=== PATIENT | male | born 1960 | race Caucasian/White ===

== ENCOUNTER 2023-02-19 07:55 | Emergency (ER) | payer BC, SELFPAY ==
[2023-02-19 07:56] VITALS: BP 195/110; PULSE 73; RESP 14; TEMP 36.1; O2SAT 98; BMI 29.4
[2023-02-19 08:05] VITALS: BMI 29.5
--- NOTE | 2023-02-19 08:12 | EDS_ITS ---
HPI History of Present Illness Chief Complaint: Neuro S/Sx Informant: patient and spouse/S.O. Narrative Narrative: Day before yesterday, patient noticed that his right face was droopy and as a result he is having some trouble talking, increased tearing from his right eye, and trouble closing his right eye. Couple days before that he had a routine physical for work that showed that his blood pressure was somewhere around 180, this morning it was 123 systolic, and here it is high again 195. He has no weakness, numbness or tingling in his extremities, or trouble talking. For about 2 weeks he has had an itchy lump in the right neck, and today he also notices an aching pain just below or behind the right ear. He denies any decreased hearing or anything that actually feels like an earache. No recent cold symptoms. Patient does not see a doctor, but is trying to get 1. He takes no medications since he has no medical problems that he knows of. This past week was the first time in a long time he has had his blood pressure checked. History is somewhat limited from the patient, the is a nurse and answers most questions for him. PFS PFS Medical History no medical history no medical history Home Medications prednisone 10 mg tablet 10 mg PO DAILY #40 TABLETS 02/19/23 [Rx Last Taken Unknown] Allergy/AdvReac Type Severity Reaction Status Date / Time No Known Allergies Allergy Verified 02/19/23 07:56 Family History no significant family his Surgical History no surgical history Social History Smoking Status: Never smoker ROS [facility] ED Constitutional Constitutional ED: Denies chills or fever(s) Eyes Eyes: Reports tearing; Denies blurry vision, change in vision or diplopia ENT ENT ED: Reports other Details: Weakness right face see HPI ; Denies rhinorrhea or sore throat Cardiovascular Cardiovascular: Denies chest pain or palpitations Respiratory/Chest Respiratory/Chest: Denies cough or dyspnea Gastrointestinal Gastrointestinal: Denies abdominal pain, diarrhea, nausea or vomiting Genitourinary Genitourinary ED: Denies dysuria or hematuria Musculoskeletal Musculoskeletal: Denies back pain or neck pain Integumentary Denies abscess or rash Neurologic Neurologic: Reports as per HPI, abnormal speech and other Details: Weakness right side of face only ; Denies abnormal gait, abnormal hearing, headache(s) or paresthesias Psychiatric Psychiatric: Denies anxiety or suicidal thoughts EXAM Physical Exam Const Vital Signs: 02/19/23 07:56 Temperature 97 F L Temperature Source Temporal Pulse Rate 73 Respiratory Rate 14 Blood Pressure 195/110 H Blood Pressure Mean 138 Pulse Ox 98 Oxygen Delivery Method Room Air Positive well nourished and well developed General Appearance ED: well developed and NAD HEENT Reports moist mucous membranes HEENT Narrative: Complete right facial droop including forehead which is paralyzed on the right side only, motor function normal throughout the left side. This includes a ptosis on the right but normal-appearing eye. Normal intraoral exam. Sticks his tongue out in the midline. In the right anterolateral neck there is erythema that blanches without any other rash and a skin deep subcentimeter nodule that is nontender I do not palpate any lymphadenopathy or any other masses. No mastoid tenderness or process. No parotid tenderness or swelling. TMs and EACs normal bilaterally. normocephalic and atraumatic Eyes PERRL and EOMs intact bilaterally Neck full ROM, no lymphadenopathy and supple Resp normal respiratory effort and clear to auscultation bilaterally Cardio regular rate, regular rhythm and no murmurs GI non-tender and non-distended Auscultation: normoactive bowel sounds Palpation: soft Back/Spine no CVA tenderness General Back: other FROM Extremity normal to inspection General Extremety ED: Negative for edema, pulses abnormal or tenderness General Extremity: Negative for edema or pulses abnormal Neuro oriented x3, CN's II-XII intact bilaterally and no sensory deficits noted Sensorium / Orientation: awake and alert Motor Exam: strength 5/5 throughout Skin no rashes or lesions noted and no wounds MDM MDM MDM Narrative Medical decision making narrative: Rechecked blood pressure 177/89. 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 Given that his blood pressure was 123 this morning, I am hesitant to start him on antihypertensives with the limited number of elevated pressures he has had in the last several days. He needs to get regular rechecks and states she is establishing him with Dr. Scherer. At this time prednisone is indicated, will start him on 60 mg today and do 60 mg total for 6 days followed by a 4-day taper per current recommendations. He has no contraindications of prednisone right now. We discussed eyepatch and artificial tears to prevent any problems or damage to his eye, he does wear eyeglasses which helps, but when he is outdoors I recommend patching, and drinking through a straw if he needs to, at this time I do not think he needs any other emergent testing, all questions answered at the bedside and they are comfortable with that plan. Discharge Plan Triage Chief Complaint: Neuro S/Sx ED Provider: Armando Fernandes Dx/Rx/DC Orders Clinical Impression: Right-sided Wong's palsy, Episode of hypertension Instructions: Hypertension Dc, ED Wong's Palsy Prescriptions: New prednisone 10 mg tablet 10 mg PO DAILY Qty: 40 0RF Rx Instructions: 6 po qd x 5 d, 4 po qd x 1 d, 3 po qd x 1 d, 2 po qd x 1 d, then 1 po qd x 1 d Primary Care Provider: Alyssia High Referrals: Zoila Scherer DO [Med Staff - [employer]] - Activity Restrictions/Additional Instructions: Wear eye patch whenever outdoors to protect eye and use artificial tears as needed throughout the day to prevent dry eye, which can cause increased irrita tion, pain, and corneal abrasions. Disposition Disposition: Home, Self Care
[2023-02-19] MEDS: predniSONE 20 MG Tablet 60 MG PO (08:17)
[2023-02-19 08:19] VITALS: BP 177/99
== END 2023-02-19 08:40 | disposition home or self-care (01) ==
PROVIDERS: Emergency Provider Emergency Medicine; PCP Internal Medicine; Visit Provider Emergency Medicine
DX: G51.0 Bell's palsy (principal); I10 Essential (primary) hypertension; Z97.3 Presence of spectacles and contact lenses
CPT/HCPCS: 99283

== ENCOUNTER → 2023-02-20 | Outpatient (CLI) | payer BC, SELFPAY ==
--- NOTE | 2023-02-20 14:47 | CT_ITS ---
INDICATION: Wong''s palsy EXAMINATION: CT BRAIN WITH AND WITHOUT CONTRAST - CT Head or Brain WO/W Contrast Injection TECHNIQUE: Multiple axial images were obtained of the brain with and without IV contrast. A radiation dose optimization technique was used for this scan. IV Contrast dosage and agent: RADIATION DOSAGE (If Supplied By Facility): CTDIvol = ( 44.99 ) mGy, DLP = ( 1580.97 ) mGycm COMPARISON: FINDINGS: BRAIN PARENCHYMA: No intra- or extra-axial hemorrhage. No evidence of acute infarct. No intracranial mass or mass effect. There is preservation of the henderson/white matter interface. Posterior fossa structures are unremarkable. No abnormal contrast enhancement. CSF SPACES: Appropriate for age. No hydrocephalus. Basal cisterns are patent. CALVARIUM, SKULL BASE, PARANASAL SINUSES AND MASTOID AIR CELLS: Clear. No discrete lytic or blastic abnormalities. ORBITS: Both globes, extraocular muscles, optic nerves and retrobulbar fat appear unremarkable. CT/Brain/Head W/WO Contrast IMPRESSION: Negative CT Brain with and without contrast. Electronically Signed: Derrick Zambrano DO at 16:20 EDT Reading Location ID and State: [facility] / [place] Tel [phone], Service support ,
[2023-02-20 15:38] LABS: EGFR FINGERSTICK > 60.0000 mL/min (>60)
[2023-02-20 15:41] LABS: ALB/GLOB Ratio 1.2 RATIO (0.9-2.4); AST(SGOT) 9 U/L (15-37); Alanine Aminotransfer ALT/SGPT 16 U/L (16-61); Albumin, Serum 3.8 g/dL (3.2-5.0); Alkaline Phosphatase 69 U/L (45-117); Anion Gap 7 (5-15); BUN 13 mg/dL (7-18); BUN/Creat Ratio 15.5 RATIO (10-20); CRP 3.88 mg/L (0.0-3.0); Chloride 109 mmol/L (98-107); Creatinine, Serum 0.84 mg/dL (0.70-1.30); EST Glomerular Filtration Rate 98 mL/min (>60); Est Glom Filt Rate - Afr Amer 119 mL/min (>60); Globulin 3.3 g/dL (2.2-4.2); Glucose 122 mg/dL (74-106); Potassium 3.8 mmol/L (3.5-5.1); Protein, Total 7.1 g/dL (6.4-8.2); Sodium Level 142 mmol/L (136-145)
[2023-02-20 15:44] LABS: Erythrocyte Sedimentation Rate 7 mm/hr (0-20)
[2023-02-20 15:47] LABS: Absolute Lymphocyte Count 0.51 X10^3/uL (0.83-4.51); Absolute Neutrophil Count 7.4 X10^3/uL (2.0-7.7); Basophil# 0.02 X10^3/uL; Basophil% 0.2 % (0-1); Hematocrit 42.5 % (40-54); Hemoglobin 14.2 g/dL (13.0-16.5); Lymphocyte # 0.51 X10^3/ul (0.83-4.51); Lymphocyte % 6.3 % (19-41); Mean Corp Hgb Conc 33.4 g/dL (32-36); Mean Corpuscular Volume 86.7 fL (80-94); Mean Platelet Vol. 12.8 fl (6.2-12.0); Monocyte% 1.2 % (0-10); NRBC Flagged by Analyzer 0 % (0-5); Neutrophil # 7.36 X10^3/uL (2.7-7.7); Neutrophil % 91.7 % (47-70); POSITIVE DIFFERENTIAL YES; Platelet Count 189 K/mm3 (150-450); RBC Distribution Width CV 13.2 % (11.6-14.6); RBC Distribution Width SD 41.1 fl (35.1-43.9)
[2023-02-20 15:51] LABS: Differential Indicated SCAN CRITERIA MET
[2023-02-20 16:06] LABS: Differential Comment SCANNED
== END | disposition home or self-care (01) ==
PROVIDERS: PCP Internal Medicine; Referring Provider Nurse Practitioner Family; Visit Provider Nurse Practitioner Family
DX: G51.0 Bell's palsy (principal)
CPT/HCPCS: 70470; 80053; 85025; 85652; 86140; Q9967

== ENCOUNTER → 2023-02-26 | Outpatient (CLI) | payer BC, SELFPAY ==
[2023-02-26 11:32] LABS: Bacteria 0 SEEN /hpf (None Seen); Mucous, Urine 0 SEEN /hpf (<or=2+); Red Blood Cells-Urine 0 SEEN /hpf (0-5); Squamous Epithelial Cells - UA 0 SEEN /hpf (0-5); White Blood Cells 0 SEEN /hpf (0-5)
[2023-02-26 15:17] LABS: Color, Urine Yellow (Yellow); Glucose, Dipstick Normal (Normal); Ketone-Dipstick Negative (Negative); Leukocyte Esterase-Dipstick Negative /ul (Negative); Nitrite-Dipstick Negative (Negative); Occult Blood-Urine Negative /ul (Negative); Protein-Dipstick 15 mg/dl (Negative); Specific Gravity, Urine 1.015 (1.002-1.030); Urine Bilirubin Dipstick Negative (Negative); Urine Clarity Clear (Clear); Urine Urobilinogen Normal (Normal); Urine pH 6.5 (5.0 - 8.0)
[2023-02-26 15:42] LABS: Hemoglobin A1c 5.4 % (3.8-5.6)
[2023-02-26 15:59] LABS: Cholesterol 192 mg/dL (200); High Density Lipoprotein 53 mg/dL; Thyroid Stim Hormone (TSH) 0.79 uIU/mL (0.358-3.74); Triglycerides 214 mg/dL; Very Low Density Lipoprotein 43 mg/dL (5-40)
[2023-03-02 01:07] LABS: Lyme IgG P18 Ab Absent (.); Lyme IgG P23 Ab Absent (.); Lyme IgG P28 Ab Absent (.); Lyme IgG P30 Ab Absent (.); Lyme IgG P39 Ab Absent (.); Lyme IgG P41 Ab Present (.); Lyme IgG P45 Ab Absent (.); Lyme IgG P58 Ab Present (.); Lyme IgG P66 Ab Absent (.); Lyme IgG P93 Ab Present (.); Lyme IgG WB Interpretation Negative (.); Lyme IgM P23 Ab Present (.); Lyme IgM P39 Ab Present (.); Lyme IgM P41 Ab Present (.); Lyme IgM WB Interpretation Positive (.)
== END | disposition home or self-care (01) ==
LOC: MTLAB 11:12
PROVIDERS: PCP Internal Medicine; Referring Provider Nurse Practitioner Family; Visit Provider Nurse Practitioner Family
DX: I16.0 Hypertensive urgency (principal); R73.01 Impaired fasting glucose; Z13.220 Encounter for screening for lipoid disorders; R76.8 Other specified abnormal immunological findings in serum
CPT/HCPCS: 36415; 80061; 81001; 83036; 84443; 86617

== ENCOUNTER → 2023-03-01 | Outpatient (CLI) | payer BC, SELFPAY ==
[2023-03-04 16:07] LABS: CHOLESTEROL TOTAL 186 mg/dL (100-199); HDL-C 54 mg/dL (>39); HDL-P TOTAL 30.2 umol/L (>=30.5); INSULIN RESISTANCE SCORE 47 (<=45); LDL SIZE 21.1 nm (>20.5); LDL-C (NIH CALC) 103 mg/dL (0-99); LDL-P 1322 nmol/L (<1000); SMALL LDL-P 358 nmol/L (<=527); TRIGLYCERIDES 167 mg/dL (0-149)
== END | disposition home or self-care (01) ==
PROVIDERS: PCP Internal Medicine; Referring Provider Nurse Practitioner Family; Visit Provider Nurse Practitioner Family
DX: E78.1 Pure hyperglyceridemia (principal)
CPT/HCPCS: 36415; 80061; 83704

== ENCOUNTER → 2023-04-04 | Outpatient (CLI) | payer BC, SELFPAY ==
--- NOTE | 2023-04-04 06:43 | MRI_ITS ---
EXAM: MR HEAD WITHOUT AND WITH INTRAVENOUS CONTRAST, INTERNAL AUDITORY CANAL PROTOCOL CLINICAL INDICATION: Bilateral facial paralysis-worsening, BELLS PALSY AFTER BEING BIT BY A TICK TECHNIQUE: Multiplanar and multisequence MR images of the internal auditory canal were obtained without and with intravenous contrast. Magnetic field strength 1.5 T. CONTRAST: 15 cc of Clariscan IV. COMPARISON: No relevant prior studies available. FINDINGS: CRANIAL NERVES: Unremarkable. No mass. No abnormal enhancement. COCHLEA AND SEMICIRCULAR CANALS: Unremarkable. CEREBELLOPONTINE ANGLES: Unremarkable. No mass. BRAIN AND EXTRA-AXIAL SPACES: Unremarkable as visualized. No intra- or extra-axial hemorrhage. No intracranial mass or mass effect. There is preservation of the henderson/white matter interface. Posterior fossa structures are unremarkable. Ventricles are appropriate for age. No hydrocephalus. Basal cisterns are patent. BONES/JOINTS: Old left frontal craniotomy. No discrete lytic or blastic abnormalities. SINUSES: Unremarkable as visualized. Clear. MASTOID AIR CELLS: Unremarkable as visualized. Clear. ORBITS: Unremarkable as visualized. Both globes, extraocular muscles, optic nerves and retrobulbar fat appear unremarkable. MRI/Brain W/WO Contrast IMPRESSION: No acute findings in the internal auditory canals. Electronically Signed: Maulik Lincoln MD at 7:19 EDT ,
[2023-04-04 07:06] LABS: CREATININE FINGERSTICK 1.4 mg/dL (0.70-1.30)
== END | disposition home or self-care (01) ==
LOC: MRI 06:27
PROVIDERS: PCP Internal Medicine; Referring Provider Nurse Practitioner Family; Visit Provider Nurse Practitioner Family
DX: G51.0 Bell's palsy (principal)
CPT/HCPCS: 70553; A9575

== ENCOUNTER 2023-10-04 08:23 | Day surgery (SDC) | payer BC, SELFPAY ==
[2023-10-04] VITALS (7 sets, daily range): BP systolic 100–158; BP diastolic 72–99; PULSE 53–71; RESP 16–18; TEMP 36.3–36.6; O2SAT 95–99; BMI 28.5
[2023-10-04] MEDS: Lactated Ringers 1,000 ML 15 ML IV (08:44)
--- OUTSIDE RECORDS SUMMARY | 2023-10-04 08:46 | XMS RPT_ITS | CCD ---
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 Name Role Phone Zoila Scherer DO Unavailable [phone] Alaina Lee LPN Unavailable Unavailable Sandra Strong CNP Unavailable Unavailable Unavailable Anthony Gauthier Unavailable Sandra Strong CNP Unavailable Masood Santos MD Unavailable [phone] Allergies Allergy Classification Reported Allergen(s) Allergy Type Date of Onset Reaction(s) Facility (12 sources) No known drug allergy (situation); Translations: [No known drug allergy (situation)] Allergy to substance (finding) [facility] Work Phone: Medications Completed/Discontinued Medications Medication Drug Class(es) Dates Sig (Normalized) Sig (Original) doxycycline hyclate 100 mg oral capsule (14 sources) Tetracycline-class Drug Start: 02-20-2023 End: 03-06-2023 take 1 capsule by mouth twice daily doxycycline hyclate 100 mg oral capsule 1 Capsule 2 times per day for 14 days Quantity: 28 {Capsule} Refills: 0 Ordered: 20-Feb-2023 Sandra Strong CNP Start : 20-Feb-2023 End : 06-Mar-2023 Inactive hydrALAZINE hydrochloride 25 mg oral tablet (14 sources) Arteriolar Vasodilator Start: 02-20-2023 End: 05-02-2023 take 1 tablet by mouth every eight hours as needed hydrALAZINE 25 mg oral tablet 1 (one) tablet every 8 hours as needed for systolic >170 or diastolic >100 for 0 days Quantity: 30 {Tablet} Refills: 0 Ordered: 30-Aug-2023 Rosa GIVENSAlaina Jiang Start : 20-Feb-2023 End : 02-May-2023 Inactive Comments: Medication taken as needed. Problems Active Problems Problem Classification Problem Date Documented Da te Episodic/Chronic Acute cerebrovascular disease (14 sources) Subdural hematoma; 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 Chronic Past or Other Problems Problem Classification Problem Date Documented Da te Episodic/Chronic Unclassified (19 sources) Results Test Name Value Interpretation Reference Range Facil ity Vital Signs Date Time Vital Sign Value Performing Clinician Facility 05-02-2023 13:14-0400 Body height 172.72 cm Alaina Lee LPN [facility] Work Phone: 05-02-2023 13:14-0400 Body mass index (BMI) [Ratio] 27.98 kg/m2 Alaina Lee LPN [facility] Work Phone: 05-02-2023 13:14-0400 Body surface area Derived from formula 1.97 m2 Alaina Lee LPN [facility] Work Phone: 05-02-2023 13:14-0400 Body temperature 98.3 [degF] Alaina Lee LPN [facility] Work Phone: Encounters Encounter Date Encounter Type Care Provider Facility Start: 05-02-2023 End: 05-02-2023 Office outpatient visit 10 minutes Sandra Strong CNP Work Phone: [facility] Start: 04-17-2023 End: 04-22-2023 Office outpatient visit 15 minutes Sandra Strong CNP Work Phone: [facility] Start: 04-17-2023 Review Sandra Strong CNP Work Phone: [facility] Start: 03-07-2023 End: 03-07-2023 Annotation/Addendum Zoila Scherer DO Work Phone: [facility] Start: 02-28-2023 End: 02-28-2023 Lab Order Zoila Scherer DO Work Phone: [facility] Start: 02-27-2023 Review Zoila Harley n DO Work Phone: [facility] Start: 02-21-2023 End: 02-21-2023 Patient encounter procedure Zoila Scherer DO Work Phone: [facility] Start: 02-21-2023 End: 02-21-2023 Patient encounter procedure Zoila Scherer DO Work Phone: [facility] Start: 02-20-2023 End: 02-20-2023 Office outpatient new 30 minutes Zoila Scherer DO Work Phone: [facility] Start: 02-20-2023 Review Zoila Harley n DO Work Phone: [facility] Procedures Date Procedure Procedure Detail Performing Clinician Start: 04-18-2023 End: 04-18-2023 Surgery Visit Report Procedure Note: See Note; NOTES: [facility] [address] [place] [address]. [address] [place] [address] OFFICE VISIT Date of Service: 04/18/23 MR#: [id number] Acct: [id number] Name: BEBETO ROMERO Rep #: [id number] : 1960 Provider: Dr. Nilo paredes MD Age/Sex: 62/M Location: [facility] Status: Signed Intake Vital Signs 04/03/23 07:01 04/18/23 14:17 Height 5 ft 8 in Weight: 175 lb 187 lb 5 oz BMI 26.6 BP 152/96 H 145/91 H Blood Pressure Location Rt brachial Rt brachial Position Sitting Sitting Respiration 16 17 Pulse 96 90 Pulse Source Monitor Monitor Temp 98.6 F 97.3 F L Temp Source Temporal Tympanic Pulse Oximetry (%) 96 Oxygen Delivery Method room air Intake Visit Reasons: I D L FOREARM INFECTION Chief Complaint: LT ARM REDNESS/SWELLING/ WOUND Allergies No Known Allergies Allergy (Verified 04/18/23 14:18) Medications amoxicillin 875 mg-potassium clavulanate 125 mg tablet 1 tab PO BID #20 tabs 04/03/23 [Rx Confirmed 04/18/23] PFSH Medical History (Updated 04/18/23 @ 14:[address] Nilo Ash MD) Cellulitis of left forearm Inguinal hernia bilateral, non-recurrent Puncture wound of left forearm Surgical History (Updated 04/18/23 @ 14:16 by Ximena Boggs) H/O craniotomy Social History Smoking Status: Never smoker HPI HPI HPI: Patient reports he fell 2 weeks ago and he was in a pond and caught his arm on some metal grating. He was seen at the urgent care center but the patient was already draining and he was started on antibiotics. He has been on antibiotics for 10 days. He is still having drainage from the left forearm with swelling and pain. ROS General General: No weight change, appetite, fatigue, colon cancer, breast cancer or weakness HEENT HEENT: No difficulty swallowing, eye injury, eye surgery, swollen glands or hoarseness Endo Endocrine: No thyroid disease, diabetes mellitus, thyroid cancer, Hair loss, heat intolerance or cold intolerance Skin Skin: No rash or changing moles Breast Breast: No left breast lump, right breast lump, nipple discharge, breast pain, abnormal mammogram, abnormal US or breast enlargement Musc Musculoskeletal: No back problems, arthritis, rheumatoid arthritis, gout or joint pain Cardio Cardiovascular: No murmur, pacemaker, heart disease, atrial fibrillation, high blood pressure, heart attack, heart stent, palpitations, shortness of breat with exertion or chest pain Psych Psychiatric: No depression, anxiety or hearing voices Resp Respiratory: No shortness of breath, No sleep apnea, No cough, No COPD, No asthma, No emphysema and No wheezing Gastro Gastrointestinal: No abdominal pain, No nausea or vomiting, No diarrhea, No constipation, No blood in stool, No acid reflux, No hemorrhoids, No ulcers, No gallbladder problem and No black,tarry stools Abel Hematologic: No blood thinners, No blood disorders, No bleeding, No anemia and No blood clots Neuro Neurologic: No system reviewed and no additional complaints, except as documented, No as per HPI, No abnormal gait, No abnormal hearing, No abnormal movements, No abnormal speech, No behavioral changes, No burning sensations, No confusion, No convulsions, No disequilibrium, No dizziness, No localized weakness, No frequent falls, No headache(s), No lack of coordination, No loss of vision, No memory loss, No numbness, No other visual disturbances, No radicular pain, No restless legs, No sensory deficit, No syncope, No tingling, No tremor(s), No weakness and No other Exam Const General: cooperative Orientation: alert and oriented x3 HENMT Head: normal to inspection Neck Neck: normal visual inspection and full ROM Chest Chest palpation inspection: normal inspection of the chest Resp Effort Inspection: normal respiratory effort Auscultation: clear to auscultation bilaterally Cardio Rate: regular rate Rhythm: regular rhythm GI Inspection: non-distended Palpation: soft and nontender Musc Other: Large left forearm abscess with cellulitis and fluctuance Skin General: no rashes or lesions noted Neuro General: patient alert and patient oriented x3 Extrem General: full ROM Psych Appearance: grossly normal Mental Status: mental status grossly normal Office Procedures I D Provider Documentation Provider Documentation: The left forearm was prepped and draped in usual sterile fashion. Just proximal to the area that was spontaneously draining an area of skin was injected with local anesthetic. A small incision was made with a scalpel and deepened to the abscess cavity. There is copious purulent drainage. This is already been cultured by the patient's PCP. The area was drained and then irrigated until the purulent material was removed. Next the cavity was packed with quarter inch iodoform gauze. Dressing was applied. Patient tolerated the procedure well. Alert Black Oxide Operator Alert Billing: Yes Incision and Drainage 44767 Complex/Multiple Procedure Time Out Time Out Informed consent given: Yes Consent signed: Yes Time out checklist: patient, procedure, site marked/identified, positioning of patient, supplies available, allergies confirmed and team agrees on procedure Time out staff in room: Yes Time out verified: Yes Time out date: 04/18/23 Time out time: 02:00 Assessment and Plan Assessment and Plan (1) Abscess of left forearm: Status: Acute Plan: Patient had a large abscess of the left forearm. I performed incision and drainage with packing. He was instructed to continue his antibiotics and change the packing daily or twice a day as needed. Follow-up as needed. Nilo Ash MD Pager: [facility] [address] [place] [address], [address] [place] [address] Office: Orders: Orders Incision and Drainage Today L02.414 - Cutaneous abscess of left upper limb Coding Level of Care Code Beny Ellis Diagnoses Abscess of left forearm L02.414 CPT Codes Incision and Drainage - I D: 27435 Complex/Multiple (54563) 04/18/23 1429 <Electronically signed by Nilo Ash MD> Date Nilo Ash MD Cosigner Signature: Date (if applicable) CC: AD OPERATIONS SPECIALIST-C Sandra Strong [facility] Work Phone: Start: 04-04-2023 End: 04-05-2023 Brain W/WO Contrast Procedure Note: See Note; NOTES: [facility] [address] [place] [address] Brain W/WO Contrast MR#: [id number] Acct: [id number] Name: BEBETO ROMERO Rep #: [id number] : 1960 M 62 From: Maulik Danielle PCP: Dr. Zoila Scherer, DO Status: REG CLI Study: Brain W/WO Contrast Date of Exam: 04/04/23 Exam# [id number] Ordering Dr: Sandra Strong AD OPERATIONS SPECIALIST- C EXAM: MR HEAD WITHOUT AND WITH INTRAVENOUS CONTRAST, INTERNAL AUDITORY CANAL PROTOCOL CLINICAL INDICATION: Bilateral facial paralysis-worsening, BELLS PALSY AFTER BEING BIT BY A TICK TECHNIQUE: Multiplanar and multisequence MR images of the internal auditory canal were obtained without and with intravenous contrast. Magnetic field strength 1.5 T. CONTRAST: 15 cc of Clariscan IV. COMPARISON: No relevant prior studies available. FINDINGS: CRANIAL NERVES: Unremarkable. No mass. No abnormal enhancement. COCHLEA AND SEMICIRCULAR CANALS: Unremarkable. CEREBELLOPONTINE ANGLES: Unremarkable. No mass. BRAIN AND EXTRA-AXIAL SPACES: Unremarkable as visualized. No intra- or extra-axial hemorrhage. No intracranial mass or mass effect. There is preservation of the henderson/white matter interface. Posterior fossa structures are unremarkable. Ventricles are appropriate for age. No hydrocephalus. Basal cisterns are patent. BONES/JOINTS: Old left frontal craniotomy. No discrete lytic or blastic abnormalities. SINUSES: Unremarkable as visualized. Clear. MASTOID AIR CELLS: Unremarkable as visualized. Clear. ORBITS: Unremarkable as visualized. Both globes, extraocular muscles, optic nerves and retrobulbar fat appear unremarkable. MRI/Brain W/WO Contrast IMPRESSION: No acute findings in the internal auditory canals. Electronically Signed: Maulik Lincoln MD at 7:19 EDT , CC: Sandra Strong AD OPERATIONS SPECIALIST; Dr. Zoila Scherer DO Dental Specialist: Signed Sandra Strong CNP Work Phone: Start: 04-03-2023 End: 04-03-2023 Urgent Care Visit Report Procedure Note: See Note; NOTES: [facility] [address], [address] [place] [address] OFFICE VISIT Date of Service: 04/03/23 MR#: [id number] Acct: [id number] Name: BEBETO ROMERO Rep #: [id number] : 1960 Provider: JENNIFER Murcia Age/Sex: 62/M Location: [facility] Status: Signed Intake Vital Signs 02/19/23 08:05 04/03/23 07:01 04/03/23 07:02 Height 5 ft 6.93 in 5 ft 8 in Weight: 175 lb BMI 26.6 BP 152/96 H 144/84 H Blood Pressure Location Rt brachial Lt brachial Position Sitting Sitting Respiration 16 Pulse 96 Pulse Source Monitor Temp 98.6 F Temp Source Temporal Pulse Oximetry (%) 96 Oxygen Delivery Method room air Intake Visit Reasons: LEFT ARM REDNESS/SWELLING/WOUND INFECTION CONCERN Chief Complaint: LT ARM REDNESS/SWELLING/ WOUND Email Developer Required: No Accompanied by: Self Allergies No Known Allergies Allergy (Verified 04/03/23 06:53) Medications amoxicillin 875 mg-potassium clavulanate 125 mg tablet 1 tab PO BID #20 tabs 04/03/23 [Rx Confirmed 04/03/23] [facility] Medical History (Updated 04/03/23 @ 07:25 by Oren RODRIGUEZ, PA) Cellulitis of left forearm Puncture wound of left forearm Social History Smoking Status: Never smoker HPI HPI Chief Complaint: LT ARM REDNESS/SWELLING/ WOUND Details: BEBETO ROMERO, is a 62 M who presents to the office today for initial evaluation approximately 36 hours status post trip fall forward onto metal object which punctured his left forearm. Since the time of the injury, patient has developed progressively enlarging erythema, warmth, swelling circumferential to the same. Unknown last Td. Tmax 101.6 Fahrenheit last evening; no complaints of lightheadedness/dizziness, nausea, or chest pressure/shortness of breath.. Khsx-yse-wruuroy ibuprofen and Tylenol has assist with current symptoms. No other associated symptoms and no alleviating/aggravating factors. ROS Const Constitutional: No other (As above) Exam Const General: cooperative, healthy appearing and no acute distress Nutritional Appearance: average body habitus Orientation: alert, awake and oriented x3 HENLA Head: normal to inspection Ears: hearing grossly normal bilaterally and external ears normal Nose: external nose normal Chest Chest palpation inspection: normal inspection of the chest Resp Effort Inspection: normal respiratory effort and able to speak in complete sentences Cardio Rate: regular rate Pulses: radial pulses present Skin General: no rashes or lesions noted Trauma: puncture (L FA w/ 12 cm circumferential erythema, warmth, swelling, tender to touch) Neuro General: patient alert, patient awake and patient oriented x3 Cognition: normal cognition Speech: speech normal Motor: muscle tone normal throughout Sensory Exam: no sensory deficits noted Extrem General: normal to inspection Psych Appearance: grossly normal Mental Status: mental status grossly normal Mood: congruent mood Affect: normal affect Speech and Movement: speech and movement normal Attitude: cooperative Coding Level of Care Code Off vis,new,level 3 Diagnoses Puncture wound of left forearm S51.832A Cellulitis of left forearm L03.114 Assessment and Plan Assessment and Plan (1) Puncture wound of left forearm: Status: Acute (2) Cellulitis of left forearm: Status: Acute Plan: Augmentin as prescribed today. Supportive measures as instructed today. Tdap updated today. Follow-up with PCP in 3 to 5 days should symptoms not improve, ED sooner should symptoms only worsen or any other concerns develop. Patient states acknowledging understanding all the above. This note was generated with [employer] dictation software. It may contain incorrect words, spelling, and punctuation that were not noted in checking the note before signing. Medications: New amoxicillin-pot clavulanate 875-125 mg 1 TAB PO BID 20 tabs 0RF 04/03/23 0726 <Electronically signed by Oren RODRIGUEZ> Date Oren RODRIGUEZ Cosigner Signature: Date (if applicable) CC: Sandra Strong CNP Work Phone: Start: 02-20-2023 End: 02-20-2023 Brain/Head W/WO Contrast Procedure Note: See Note; NOTES: [facility] [address] [place] [address] Brain/Head W/WO Contrast MR#: [id number] Acct: [id number] Name: BEBETO ROMERO Rep #: [id number] : 1960 M 62 From: Derrick Zambrano DO PCP: Dr. Zoila Scherer DO Status: REG CLI Study: Brain/Head W/WO Contrast Date of Exam: 3 Exam# [id number] Ordering Dr: Sandra Strong AD OPERATIONS SPECIALIST- C INDICATION: Wong''s palsy EXAMINATION: CT BRAIN WITH AND WITHOUT CONTRAST - CT Head or Brain WO/W Contrast Injection TECHNIQUE: Multiple axial images were obtained of the brain with and without IV contrast. A radiation dose optimization technique was used for this scan. IV Contrast dosage and agent: RADIATION DOSAGE (If Supplied By Facility): CTDIvol = ( 44.99 ) mGy, DLP = ( 1580.97 ) mGycm COMPARISON: FINDINGS: BRAIN PARENCHYMA: No intra- or extra-axial hemorrhage. No evidence of acute infarct. No intracranial mass or mass effect. There is preservation of the henderson/white matter interface. Posterior fossa structures are unremarkable. No abnormal contrast enhancement. CSF SPACES: Appropriate for age. No hydrocephalus. Basal cisterns are patent. CALVARIUM, SKULL BASE, PARANASAL SINUSES AND MASTOID AIR CELLS: Clear. No discrete lytic or blastic abnormalities. ORBITS: Both globes, extraocular muscles, optic nerves and retrobulbar fat appear unremarkable. CT/Brain/Head W/WO Contrast IMPRESSION: Negative CT Brain with and without contrast. Electronically Signed: Derrick Zambrano DO at 16:20 EDT Reading Location ID and State: [facility] / [place] Tel [phone], Service support , CC: Sandra Strong AD OPERATIONS SPECIALIST; Dr. Zoila Scherer DO Dental Specialist: Signed Sandra Strong CNP Work Phone: Start: 02-19-2023 End: 02-19-2023 Emergency Department Summary Procedure Note: See Note; NOTES: [facility] Records Department [address] [place] [address] Emergency Department Summary 02/19/23 MR#: [id number] Acct: [id number] Name: BEBETO ROMERO Rep #: [id number] : 1960 62 From: Armando Fernandes MD PCP: Dr. Alyssia High MD Status:PRE ER Location: ED HPI History of Present Illness Chief Complaint: Neuro S/Sx Informant: patient and spouse/S.O. Narrative Narrative: Day before yesterday, patient noticed that his right face was droopy and as a result he is having some trouble talking, increased tearing from his right eye, and trouble closing his right eye. Couple days before that he had a routine physical for work that showed that his blood pressure was somewhere around 180, this morning it was 123 systolic, and here it is high again 195. He has no weakness, numbness or tingling in his extremities, or trouble talking. For about 2 weeks he has had an itchy lump in the right neck, and today he also notices an aching pain just below or behind the right ear. He denies any decreased hearing or anything that actually feels like an earache. No recent cold symptoms. Patient does not see a doctor, but is trying to get 1. He takes no medications since he has no medical problems that he knows of. This past week was the first time in a long time he has had his blood pressure checked. History is somewhat limited from the patient, the is a nurse and answers most questions for him. PFSH PFSH Medical History no medical history no medical history Home Medications prednisone 10 mg tablet 10 mg PO DAILY #40 TABLETS 02/19/23 [Rx Last Taken Unknown] Allergy/AdvReac Type Severity Reaction Status Date / Time No Known Allergies Allergy Verified 02/19/23 07:56 Family History no significant family his Surgical History no surgical history Social History Smoking Status: Never smoker ROS ROS ED Constitutional Constitutional ED: Denies chills or fever(s) Eyes Eyes: Reports tearing; Denies blurry vision, change in vision or diplopia ENT ENT ED: Reports other Details: Weakness right face see HPI ; Denies rhinorrhea or sore throat Cardiovascular Cardiovascular: Denies chest pain or palpitations Respiratory/Chest Respiratory/Chest: Denies cough or dyspnea Gastrointestinal Gastrointestinal: Denies abdominal pain, diarrhea, nausea or vomiting Genitourinary Genitourinary ED: Denies dysuria or hematuria Musculoskeletal Musculoskeletal: Denies back pain or neck pain Integumentary Denies abscess or rash Neurologic Neurologic: Reports as per HPI, abnormal speech and other Details: Weakness right side of face only ; Denies abnormal gait, abnormal hearing, headache(s) or paresthesias Psychiatric Psychiatric: Denies anxiety or suicidal thoughts EXAM Physical Exam Const Vital Signs: 02/19/23 07:56 Temperature 97 F L Temperature Source Temporal Pulse Rate 73 Respiratory Rate 14 Blood Pressure 195/110 H Blood Pressure Mean 138 Pulse Ox 98 Oxygen Delivery Method Room Air Positive well nourished and well developed General Appearance ED: well developed and NAD HEENT Reports moist mucous membranes HEENT Narrative: Complete right facial droop including forehead which is paralyzed on the right side only, motor function normal throughout the left side. This includes a ptosis on the right but normal-appearing eye. Normal intraoral exam. Sticks his tongue out in the midline. In the right anterolateral neck there is erythema that blanches without any other rash and a skin deep subcentimeter nodule that is nontender I do not palpate any lymphadenopathy or any other masses. No mastoid tenderness or process. No parotid tenderness or swelling. TMs and EACs normal bilaterally. normocephalic and atraumatic Eyes PERRL and EOMs intact bilaterally Neck full ROM, no lymphadenopathy and supple Resp normal respiratory effort and clear to auscultation bilaterally Cardio regular rate, regular rhythm and no murmurs GI non-tender and non-distended Auscultation: normoactive bowel sounds Palpation: soft Back/Spine no CVA tenderness General Back: other FROM Extremity normal to inspection General Extremety ED: Negative for edema, pulses abnormal or tenderness General Extremity: Negative for edema or pulses abnormal Neuro oriented x3, CN's II-XII intact bilaterally and no sensory deficits noted Sensorium / Orientation: awake and alert Motor Exam: strength 5/5 throughout Skin no rashes or lesions noted and no wounds MDM MDM MDM Narrative Medical decision making narrative: Rechecked blood pressure 177/89. 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 Given that his blood pressure was 123 this morning, I am hesitant to start him on antihypertensives with the limited number of elevated pressures he has had in the last several days. He needs to get regular rechecks and states she is establishing him with Dr. Scherer. At this time prednisone is indicated, will start him on 60 mg today and do 60 mg total for 6 days followed by a 4-day taper per current recommendations. He has no contraindications of prednisone right now. We discussed eyepatch and artificial tears to prevent any problems or damage to his eye, he does wear eyeglasses which helps, but when he is outdoors I recommend patching, and drinking through a straw if he needs to, at this time I do not think he needs any other emergent testing, all questions answered at the bedside and they are comfortable with that plan. Discharge Plan Triage Chief Complaint: Neuro S/Sx ED Provider: Armando Fernandes Dx/Rx/DC Orders Clinical Impression: Right-sided Wong's palsy, Episode of hypertension Instructions: Hypertension Dc, ED Wong's Palsy Prescriptions: New prednisone 10 mg tablet 10 mg PO DAILY Qty: 40 0RF Rx Instructions: 6 po qd x 5 d, 4 po qd x 1 d, 3 po qd x 1 d, 2 po qd x 1 d, then 1 po qd x 1 d Primary Care Provider: Alyssia High Referrals: Zoila Scherer DO [[facility] Staff - Corporate Account Executive] - Activity Restrictions/Additional Instructions: Wear eye patch whenever outdoors to protect eye and use artificial tears as needed throughout the day to prevent dry eye, which can cause increased irritation, pain, and corneal abrasions. Disposition Disposition: Home, Self Care What to do if you have Problems For any increased pain, shortness of breath, bleeding, nausea or vomiting, chest pain, or any unexpected problems, contact your Primary Care Provider. Call [facility] ([phone]) or report to the closest Emergency Room. Call 911 if necessary. 02/19/23 0825 <Electronically signed by Armando Fernandes MD> Cosigner Signature (if applicable): CC: Dr. Alyssia High MD; Dr. Zoila Scherer DO Signed Zoila Scherer DO Work Phone: Plan of Treatment Date Care Activity Detail Author Start: 05-02-2023 Procedure Education Eprescribed prescriptions (G8553) [facility] Work Phone: Start: 04-17-2023 Culture bacterial any source anaerobic iso&id CULTURE ANAEROBIC (57385) [facility]; [facility] Work Phone: Start: 04-17-2023 CULTURE, WOUND (AEROBIC) (44389) CULTURE, WOUND (AEROBIC) (02068) [facility]; [facility] Work Phone: Start: 04-17-2023 Procedure Education Eprescribed prescriptions (G8553) [facility]; [facility] Work Phone: Start: 04-17-2023 Provider Instructions for Treatment Follow up in 2 weeks [facility] Work Phone: Start: 03-07-2023 Lipid panel LIPID PANEL (35014) : Do around 06/2023 [facility]; [facility] Work Phone: Start: 02-28-2023 Apolipoprotein each APOLIPOPROTEIN (17922) [facility] Work Phone: Start: 02-28-2023 Lipoprotein blood jaclyn numbers & subclasses NMR Profile (52964) [facility]; [facility] Work Phone: Start: 02-21-2023 Assay of thyroid stimulating hormone tsh TSH (THYROID STIMULATING HORMONE) (34946) [facility]; [facility] Work Phone: Start: 02-21-2023 Hemoglobin glycosylated a1c HGB A1C (83096) [facility]; [facility] Work Phone: Start: 02-21-2023 Lipid panel LIPID PANEL (31977) [facility] Work Phone: Start: 02-21-2023 Protein westrn blot i&r blood/other fluid PROTEIN-WESTERN BLOT (26685) [facility]; [facility] Work Phone: Start: 02-21-2023 Provider Instructions for Treatment Follow up in one week with Sandra [facility]; [facility] Work Phone: Start: 02-21-2023 Urinls dip stick/tablet reagnt non-auto micrscpy URINALYSIS W MICROSCOPY (20188) [facility]; [facility] Work Phone: Start: 02-20-2023 Blood count complete auto&auto difrntl wbc CBC, PLATELETS & AUT DIFF (28197) [facility]; [facility] Work Phone: Start: 02-20-2023 C-reactive protein C-REACTIVE PROTEIN (92850) [facility]; [facility] Work Phone: Start: 02-20-2023 Comprehensive metabolic panel METABOLIC PANEL, COMPREHENSIVE (21253) [facility]; [facility] Work Phone: Start: 02-20-2023 Procedure Education Eprescribed prescriptions (G8553) [facility]; [facility] Work Phone: Start: 02-20-2023 Provider Instructions for Treatment Follow up [facility]; [facility] Work Phone: Start: 02-20-2023 Sedimentation rate rbc automated Sedimentation Rate-ESR (53170) [facility]; [facility] Work Phone: Start: 02-20-2023 Antibody borrelia burgdorferi lyme disease Lyme Disease Antibody W/ Reflex (91739) [facility]; [facility] Work Phone: [facility] Work Phone: [facility] Work Phone: [facility] Work Phone: Payers Date Payer Category Payer Policy ID Unknown [employer] Instructions 05-02-2023 Note Date & Type Note Facility [facility]; [facility] Work Phone: Instructions Note Date & Type Note Facility [facility]; [facility] Work Phone: Instructions Note Date & Type Note Facility [facility]; [facility] Work Phone: Instructions Note Date & Type Note Facility [facility]; [facility] Work Phone: Instructions Note Date & Type Note Facility [facility]; [facility] Work Phone: Instructions Note Date & Type Note Facility [facility]; [facility] Work Phone: Instructions Note Date & Type Note Facility [facility]; [facility] Work Phone: Instructions Note Date & Type Note Facility [facility]; [facility] Work Phone: Instructions Note Date & Type Note Facility [facility]; [facility] Work Phone: Instructions Note Date & Type Note Facility [facility]; [facility] Work Phone: Additional Source Comments FOR RECORDS PERTAINING TO PATIENTS WHO ARE OR HAVE BEEN ENROLLED IN A CHEMICAL DEPENDENCY/SUBSTANCEABUSE PROGRAM, SOME INFORMATION MAY BE OMITTED. This clinical summary was aggregated from multiple sources. Caution should be exercised in using it in the provision of clinical care. This summary normalizes information from multiple sources, and as a consequence, information in this document may materially change the coding, format and clinical context of patient data. In addition, data may be omitted in some cases. CLINICAL DECISIONS SHOULD BE BASED ON THE PRIMARY CLINICAL RECORDS. [employer] [facility]. provides no warranty or guarantee of the accuracy or completeness of information in this document.
--- NOTE | 2023-10-04 09:08 | PCM.HP.STD ---
[facility] - General General Date of Admission: 10/04/23 Date of Service: 10/04/23 Chief Complaint: Screening colonoscopy HPI Narrative BEBETO ROMERO, is a 63 M who presents today for screening colonoscopy. He has never had a colonoscopy. He is not having any abdominal pain. Is not myographic. He denied any chest pain or shortness of breath. He denies any nausea, vomiting or diarrhea. He has no change in bowel bladder habits. Overall is in very good health. [facility] Medical History (Updated 10/02/23 @ 13:21 by Lizabeth Zimmerman) Cellulitis of left forearm Hx of Wong's palsy Inguinal hernia bilateral, non-recurrent Non-smoker Puncture wound of left forearm Wears glasses Home Medications NK 10/02/23 [History Last Taken Unknown] Allergy/AdvReac Type Severity Reaction Status Date / Time No Known Allergies Allergy Verified 10/04/23 08:40 Family History (Updated 09/20/23 @ 12:24 by Haley Butler) Father Liver cancer Surgical History H/O craniotomy Hx of bilateral inguinal hernia repair Social History (Updated 09/20/23 @ 12:25 by Haley Butler) current occupational status: employed Smoking Status: Never smoker Smokeless tobacco user: chewing tobacco ROS Review of Systems ROS Unobtainable: other Constitutional Constitutional: Denies fatigue, fever(s), poor appetite, weight gain or weight loss ENT HEENT: Denies mouth lesions Cardiovascular Cardiovascular: Denies abdominal bloating, abdominal edema or abdominal pain Respiratory/Chest Respiratory/Chest: Denies change in mental status, change in phlegm color, chest congestion or chest tightness Gastrointestinal Gastrointestinal: Denies belching, bloating, change in bowel habits, change in stool character, chewing difficulty, coffee ground emesis, constipation, cramping, diarrhea, dyspepsia, dysphagia, early satiety, excessive flatus, fecal incontinence, heartburn, hematemesis, hematochezia, hemorrhoids, loose stools, melena, nausea, odynophagia, rectal bleeding, tenesmus, vomiting or weight changes Genitourinary Genitourinary: Denies abdominal discomfort, burning urination or itching Musculoskeletal Musculoskeletal: Reports as per HPI; Denies muscle weakness or myalgias Integumentary Integumentary: Denies jaundice Neurologic Neurologic: Denies lack of coordination or weakness Psychiatric Psychiatric: Denies confusion, depression, memory loss, mood swings, paranoia or suicidal ideation Endocrine Endocrinology: Denies systems reviewed and no addt'l complaints, except as documented Hematologic/Lymphatic Hematologic/Lymphatic: Denies anemia, easy bleeding, easy bruising or lymphadenopathy Allergic/Immunologic Allergic/Immunologic: Denies systems reviewed and no addt'l complaints, except as documented Vital Signs Vital Signs Vital Signs: 10/04/23 08:45 10/04/23 08:45 Temperature 97.9 F Temperature Source Temporal Pulse Rate 71 Respiratory Rate 17 Respiratory Pattern Normal Blood Pressure 158/99 H Blood Pressure Mean 118 Blood Pressure Source Monitor Blood Pressure Position Semi-Fowlers Blood Pressure Location Right Arm Pulse Ox 99 Oxygen Delivery Method Room Air Weight Weight: 182 lb 5.156 oz Body Mass Index (BMI) 28.5 Physical Exam Const alert General Appearance: cooperative Orientation / Consciousness: oriented to person HEENT hearing grossly normal bilaterally Head and Scalp: normal to inspection Face and Sinus: face symmetric Nose: external nose normal Mouth: oral and palatal mucosa normal Eyes conjunctivae normal General Eye: normal appearance of both eyes Neck full ROM General: normal visual inspection Lymph Lymphatic: no lymphadenopathy noted Chest inspection of chest normal and palpation of chest normal Chest: symmetrical chest wall rise Resp normal respiratory effort Effort and Inspection: able to speak in complete sentences Cardio regular rate GI non-distended Percussion: normal to percussion Rectal Exam: deferred Neuro Speech: speech normal Gait (Neuro): normal gait Assessment & Plan Assessment/Plan (1) Encounter for screening for malignant neoplasm of colon: PLAN: Use explained alternatives, risk, benefits including outstanding bleeding, infection, sepsis, perforation, need for emergent surgery and . He will have an ASA of 2.
--- NOTE | 2023-10-04 09:30 | COLBX_PTH ---
PATHOLOGY RESULTS PATIENT: BEBETO ROMERO LOC: EN U#:[id number] AGE/SX: 63/M ROOM: RE10/04/[address]: Dr. Felix Lamb DO : 1960 BED: DIS: 10/04/2023 SPEC #: [id number] RECD: 10/04/23 10:53 STATUS: IFEANYI REHannah #: [id number] PAULINE: 10/04/23 09:[address]: Felix Lamb DEPT: SURGICAL PATHOLOGY RECD BY: Rebeca Saul ENTERED: 10/04/23 11:31 SP TYPE: COLON BX OTHR DR: Sandra Strong, [employer] Tissues: COLON BIOPSY Procedures: Surgery Specimen Level IV HEADER OPERATION: Colonoscopy, polypectomy PRE-OP DIAGNOSIS: Screening of malignant neoplasm of colon TISSUE SUBMITTED: Splenic flexure polyp MICROSCOPIC DIAGNOSIS Splenic flexure polyp, polypectomy: Suggestive of hyperplastic polyp with cautery artifacts. SJ:lilly 10/05/2023 MICROSCOPIC DESCRIPTION Slides are reviewed. GROSS DESCRIPTION Received in fixative is one container labeled with the patient's name and designated splenic flexure polyp. The specimen consists of one irregular fragment of light montes soft tissue that measures 0.3 x 0.3 x 0.1 cm. The specimen is totally submitted in one cassette. / REY:lilly 10/04/2023 TC:5 CPT: 69621
--- NOTE | 2023-10-04 10:06 | OP.CCLET_ITS ---
10/04/2023 Luigi Haider Re : Colonoscopy procedure for Josef Fitzgerald Dear Tae This procedure was performed on October. My impressions and recommendations are as follows: Impressions : - One 7 mm polyp at the splenic flexure, removed with a hot snare. Resected and retrieved. Recommendations : - Repeat colonoscopy in 5 years for surveillance. - Continue present medications. My findings are described in the full procedure note, which is enclosed. If I can be of further assistance, please feel free to contact me at . Sincerely, Felix Lamb, DO 10/04/2023 10:05:32 AM This report has been signed electronically.
--- NOTE | 2023-10-04 10:06 | OP.COLON_ITS ---
Patient Name: Josef Fitzgerald Procedure Date: 10/04/2023 9:35 AM Date of : 1960 Age: 63 Procedure: Colonoscopy Indications: Screening for colorectal malignant neoplasm Providers: Felix Lamb DO Referring MD: Luigi Haider Medicines: Monitored Anesthesia Care Patient Profile: This is a 63 year old male. Refer to note in patient chart for documentation of history and physical. Last Colonoscopy: more than 10 years ago. Complications: No immediate complications. Procedure: Pre-Anesthesia Assessment: - Prior to the procedure, a History and Physical was performed, and patient medications and allergies were reviewed. The patient is competent. The risks and benefits of the procedure and the sedation options and risks were discussed with the patient. All questions were answered and informed consent was obtained. Patient identification and proposed procedure were verified by the physician in the pre-procedure area. Mental Status Examination: alert and oriented. Airway Examination: normal oropharyngeal airway and neck mobility. Respiratory Examination: clear to auscultation. CV Examination: normal. ASA Grade Assessment: II - A patient with mild systemic disease. After reviewing the risks and benefits, the patient was deemed in satisfactory condition to undergo the procedure. The anesthesia plan was to use monitored anesthesia care (MAC). Immediately prior to administration of medications, the patient was re-assessed for adequacy to receive sedatives. The heart rate, respiratory rate, oxygen saturations, blood pressure, adequacy of pulmonary ventilation, and response to care were monitored throughout the procedure. The physical status of the patient was re-assessed after the procedure. After I obtained informed consent, the scope was passed under direct vision. Throughout the procedure, the patient's blood pressure, pulse, and oxygen saturations were monitored continuously. The pediatric colonoscope was introduced through the anus and advanced to the cecum, identified by appendiceal orifice and ileocecal valve. The colonoscopy was performed without difficulty. The patient tolerated the procedure well. The quality of the bowel preparation was adequate. The ileocecal valve, appendiceal orifice, and rectum were photographed. Scope In: 9:40:06 AM Scope Withdrawal Time 0 hours 14 minutes 45 seconds Scope Out: 9:58:57 AM Total Procedure Duration Time 0 hours 18 minutes 51 seconds Findings: The perianal and digital rectal examinations were normal. A 7 mm polyp was found in the splenic flexure. The polyp was sessile. The polyp was removed with a hot snare. Resection and retrieval were complete. Verification of patient identification for the specimen was done. Estimated blood loss was minimal. Impression: - One 7 mm polyp at the splenic flexure, removed with a hot snare. Resected and retrieved. Recommendation: - Repeat colonoscopy in 5 years for surveillance. - Continue present medications. Procedure Code(s): --- Professional --- 26131, Colonoscopy, flexible; with removal of tumor(s), polyp(s), or other lesion(s) by snare technique CPT copyright 2021 [employer]. All rights reserved. The codes documented in this report are preliminary and upon bookkeeping clerks supervisor review may be revised to meet current compliance requirements. Felix Lamb DO 10/04/2023 10:05:32 AM This report has been signed electronically. Number of Addenda: 0 Note Initiated On: 10/04/2023 9:35 AM
== END 2023-10-04 10:45 | disposition home or self-care (01) ==
LOC: EN 08:23 → AC 08:24
PROVIDERS: PCP Nurse Practitioner Family; Referring Provider Nurse Practitioner Family; Visit Provider Internal Medicine Gastroenterology
PROC: 0DJD8ZZ Inspection of Lower Intestinal Tract, Via Natural or Artificial Opening Endoscopic (ICD-10-PCS; CPT 45378; principal; 2023-10-04 09:25)
DX: Z12.11 Encounter for screening for malignant neoplasm of colon (principal); K63.5 Polyp of colon; Z80.0 Family history of malignant neoplasm of digestive organs; F17.220 Nicotine dependence, chewing tobacco, uncomplicated; Z87.19 Personal history of other diseases of the digestive system
CPT/HCPCS: 45385; 88305; J7120; J2405

== ENCOUNTER → 2023-10-11 | Outpatient (CLI) | payer BC, SELFPAY ==
--- OUTSIDE RECORDS SUMMARY | 2023-10-11 07:04 | XMS RPT_ITS | CCD ---
Author Name Unknown Address [address] [place] [address] Organization [facility] Care Team Providers Care Sewing Machine Repairer Name Role Phone Zoila Scherer DO Unavailable Alaina Lee LPN Unavailable Unavailable Sandra Strong CNP Unavailable Unavailable Unavailable Anthony Gauthier Unavailable Sandra Strong CNP Unavailable Masood Santos MD Unavailable Allergies Allergy Classification Reported Allergen(s) Allergy Type [...] Visit Report Procedure Note: See Note; NOTES: [facility] [address] [place] [address]. [address] [place] [address] OFFICE VISIT Date of Service: 04/18/23 MR#: [id number] Acct: [id number] Name: BEBETO ROMERO Rep #: [id number] : 1960 Provider: Dr. Nilo paredes MD Age/Sex: 62/M Location: [facility] Status: Signed Intake Vital Signs 04/03/23 07:01 [...] applied. Patient tolerated the procedure well. Alert Staffing Coordinator Alert Billing: Yes Incision and Drainage 79799 Complex/Multiple Procedure Time Out Time Out Informed [...] Follow-up as needed. Nilo Ash MD Pager: [facility] [address] [place] [address], [address] [place] [address] Office: Orders: Orders Incision and Drainage Today L02.414 - Cutaneous abscess of left upper limb Coding Level of Care Code Beny Ellis Diagnoses Abscess of left forearm L02.414 CPT Codes Incision and Drainage - I D: 73245 Complex/Multiple (83949) 04/18/23 1429 <Electronically signed by Nilo Ash MD> Date Nilo Ash MD Cosigner Signature: Date (if applicable) CC: CORE MAKER HELPER-C Sandra Strong [facility] Work Phone: Start: 04-04-2023 End: 04-05-2023 Brain W/WO Contrast Procedure Note: See Note; NOTES: [facility] Imaging Services [address] [place] [address] Brain W/WO Contrast MR#: [id number] Acct: [id number] Name: BEBETO ROMERO Rep #: [id number] : 1960 M 62 From: Maulik Danielle PCP: Dr. Zoila Scherer, DO Status: REG CLI Study: Brain W/WO Contrast Date of Exam: 04/04/23 Exam# [id number] Ordering Dr: Sandra Strong CORE MAKER HELPER- C EXAM: MR HEAD WITHOUT AND WITH [...] at 7:19 EDT , CC: Sandra Strong CORE MAKER HELPER; Dr. Zoila Scherer DO Community Facilitator: Signed Sandra Strong CNP Work Phone: Start: 04-03-2023 End: 04-03-2023 Urgent Care Visit Report Procedure Note: See Note; NOTES: [facility] [address] [facility], [address] [place] [address] OFFICE VISIT Date of Service: 04/03/23 MR#: [id number] Acct: [id number] Name: BEBETO ROMERO Rep #: [id number] : 1960 Provider: JENNIFER Murcia Age/Sex: 62/M Location: [facility] Status: Signed Intake Vital Signs 02/19/23 08:05 [...] CONCERN Chief Complaint: LT ARM REDNESS/SWELLING/ WOUND Shactor Required: No Accompanied by: Self Allergies No Known Allergies Allergy (Verified 04/03/23 06:53) Medications amoxicillin 875 mg-potassium clavulanate 125 mg tablet 1 tab PO BID #20 tabs 04/03/23 [Rx Confirmed 04/03/23] [facility] Medical History (Updated 04/03/23 @ 07:25 by [...] lightheadedness/dizziness, nausea, or chest pressure/shortness of breath.. Xicn-xsx-[id number] ibuprofen and Tylenol has assist with current symptoms. No other associated symptoms and no alleviating/aggravating factors. ROS Const Constitutional: No other (As above) Exam Const General: cooperative, healthy appearing and no acute distress Nutritional Appearance: average body habitus Orientation: alert, awake and oriented x3 HENVT Head: normal to inspection Ears: hearing grossly [...] the above. This note was generated with [employer] dictation software. It may contain incorrect words, [...] W/WO Contrast Procedure Note: See Note; NOTES: [facility] Services [address] [place] [address] Brain/Head W/WO Contrast MR#: [id number] Acct: [id number] Name: BEBETO ROMERO Rep #: [id number] : 1960 M 62 From: Drerick Zambrano DO PCP: Dr. Zoila Scherer DO Status: REG CLI Study: Brain/Head W/WO Contrast Date of Exam: 3 Exam# [id number] Ordering Dr: Sandra Strong CORE MAKER HELPER- C INDICATION: Wong''s palsy EXAMINATION: CT BRAIN [...] 16:20 EDT Reading Location ID and State: [facility] / [place] Tel [phone], Service support , CC: Sandra Strong CORE MAKER HELPER; Dr. Zoila Scherer DO Community Facilitator: Signed Sandra Strong CNP Work Phone: Start: 02-19-2023 End: 02-19-2023 Emergency Department Summary Procedure Note: See Note; NOTES: [facility] [address] [place] [address] Emergency Department Summary 02/19/23 MR#: [id number] Acct: [id number] Name: BEBETO ROMERO Rep #: [id number] : 1960 62 From: Armando Fernandes MD [...] Provider: Alyssia High Referrals: Zoila Scherer DO [[facility] Staff - Naval Architect] - Activity Restrictions/Additional Instructions: Wear eye patch [...] your Primary Care Provider. Call [facility] ([phone]) or report to the closest Emergency Room. [...] bacterial any source anaerobic iso&id CULTURE ANAEROBIC (82008) [facility] Work Phone: Start: 04-17-2023 CULTURE, WOUND (AEROBIC) (31115) CULTURE, WOUND (AEROBIC) (00754) [facility]; [facility] Work Phone: Start: 04-17-2023 Procedure Education Eprescribed prescriptions (G8553) [facility] Work Phone: Start: 04-17-2023 Provider Instructions for Treatment Follow up in 2 weeks [facility] Work Phone: Start: 03-07-2023 Lipid panel LIPID PANEL (96824) : Do around 06/2023 [facility] Work Phone: Start: 02-28-2023 Apolipoprotein each APOLIPOPROTEIN (01801) [facility] Work Phone: Start: 02-28-2023 Lipoprotein blood jaclyn numbers & subclasses NMR Profile (74727) [facility]; [facility] Work Phone: Start: 02-21-2023 Assay of thyroid stimulating hormone tsh TSH (THYROID STIMULATING HORMONE) (97752) [facility]; [facility] Work Phone: Start: 02-21-2023 Hemoglobin glycosylated a1c HGB A1C (16682) [facility]; [facility] Work Phone: Start: 02-21-2023 Lipid panel LIPID PANEL (70489) [facility]; [facility] Work Phone: Start: 02-21-2023 Protein westrn blot i&r blood/other fluid PROTEIN-WESTERN BLOT (18072) [facility]; [facility] Work Phone: Start: 02-21-2023 Provider Instructions for Treatment Follow up in one week with Sandra [facility]; [facility] Work Phone: Start: 02-21-2023 Urinls dip stick/tablet reagnt non-auto micrscpy URINALYSIS W MICROSCOPY (03402) [facility]; [facility] Work Phone: Start: 02-20-2023 Blood count complete auto&auto difrntl wbc CBC, PLATELETS & AUT DIFF (03306) [facility]; [facility] Work Phone: Start: 02-20-2023 C-reactive protein C-REACTIVE PROTEIN (60872) [facility]; [facility] Work Phone: Start: 02-20-2023 Comprehensive metabolic panel METABOLIC PANEL, COMPREHENSIVE (58445) [facility]; [facility] Work Phone: Start: 02-20-2023 Procedure Education Eprescribed prescriptions (G8553) [facility]; [facility] Work Phone: Start: 02-20-2023 Provider Instructions for Treatment Follow up [facility]; [facility] Work Phone: Start: 02-20-2023 Sedimentation rate rbc automated Sedimentation Rate-ESR (57983) [facility]; [facility] Work Phone: Start: 02-20-2023 Antibody borrelia burgdorferi lyme disease Lyme Disease Antibody W/ Reflex (34866) [facility]; [facility] Work Phone: [facility] Work Phone: [facility] Work Phone: [facility] Work Phone: Payers Date Payer Category Payer Policy ID Unknown [place] [employer] Instructions 05-02-2023 Note Date & Type [...] BE BASED ON THE PRIMARY CLINICAL RECORDS. [facility]. provides no warranty or guarantee of the accuracy or completeness of information in this document.
[2023-10-11 11:20] LABS: ALB/GLOB Ratio 1.3 RATIO (0.9-2.4); AST(SGOT) 8 U/L (15-37); Alanine Aminotransfer ALT/SGPT 20 U/L (16-61); Albumin, Serum 4.1 g/dL (3.2-5.0); Alkaline Phosphatase 60 U/L (45-117); Anion Gap 5 (5-15); BUN 17 mg/dL (7-18); BUN/Creat Ratio 17.3 RATIO (10-20); Calcium,Total 9.4 mg/dL (8.5-10.1); Chloride 106 mmol/L (98-107); Cholesterol 212 mg/dL (200); Creatinine, Serum 0.98 mg/dL (0.70-1.30); EST Glomerular Filtration Rate 82 mL/min (>60); Est Glom Filt Rate - Afr Amer 99 mL/min (>60); Globulin 3.2 g/dL (2.2-4.2); Glucose 94 mg/dL (74-106); High Density Lipoprotein 53 mg/dL; Potassium 3.8 mmol/L (3.5-5.1); Protein, Total 7.3 g/dL (6.4-8.2); Sodium Level 138 mmol/L (136-145); Triglycerides 103 mg/dL; Very Low Density Lipoprotein 21 mg/dL (5-40)
[2023-10-12 17:08] LABS: PSA, Free 0.89 ng/mL; PSA, Free % 15.1 % (.); PSA, Total 5.9 ng/mL (0.0-4.0)
[2023-10-15 14:57] LABS: Thyroid Stim Hormone (TSH) 1.84 uIU/mL (0.358-3.74)
== END | disposition home or self-care (01) ==
LOC: MTLAB 07:02
PROVIDERS: PCP Nurse Practitioner Family; Referring Provider Nurse Practitioner Family; Visit Provider Nurse Practitioner Family
DX: Z12.5 Encounter for screening for malignant neoplasm of prostate (principal); I16.0 Hypertensive urgency; E78.1 Pure hyperglyceridemia
CPT/HCPCS: 36415; 80053; 80061; 84153; 84443

== ENCOUNTER → 2024-05-19 | Outpatient (CLI) | payer BC, SELFPAY ==
[2024-05-20 12:09] LABS: PSA, Free 0.77 ng/mL; PSA, Free % 15.2 % (.)
== END | disposition home or self-care (01) ==
LOC: MTLAB 07:05
PROVIDERS: PCP Nurse Practitioner Family; Referring Provider Nurse Practitioner; Visit Provider Nurse Practitioner
DX: R97.20 Elevated prostate specific antigen [PSA] (principal)
CPT/HCPCS: 36415; 84153; 84154

== ENCOUNTER → 2024-11-20 | Outpatient (CLI) | payer MEDICARE, SELFPAY ==
[2024-11-20 12:13] LABS: Absolute Lymphocyte Count 1.13 X10^3/uL (0.83-4.51); Absolute Neutrophil Count 2.6 X10^3/uL (2.0-7.7); Basophil# 0.03 X10^3/uL; Basophil% 0.7 % (0-1); Eosinophil# 0.03 X10^3/uL; Eosinophils% 0.7 % (0-5); Hematocrit 43.8 % (40-54); Hemoglobin 14.8 g/dL (13.0-16.5); Lymphocyte # 1.13 X10^3/ul (0.83-4.51); Lymphocyte % 26.7 % (19-41); Mean Corp Hgb Conc 33.8 g/dL (32-36); Mean Corpuscular Hgb 29.6 pg (27.0-32.0); Mean Corpuscular Volume 87.6 fL (80-94); Mean Platelet Vol. 12.5 fl (6.2-12.0); Monocyte# 0.39 X10^3/uL; Monocyte% 9.2 % (0-10); NRBC Flagged by Analyzer 0 % (0-5); Neutrophil # 2.64 X10^3/uL (2.7-7.7); Neutrophil % 62.5 % (47-70); Platelet Count 144 K/mm3 (150-450); RBC Distribution Width CV 12.7 % (11.6-14.6); RBC Distribution Width SD 40.8 fl (35.1-43.9); White Blood Count 4.2 K/mm3 (4.4-11.0)
[2024-11-20 12:15] LABS: Color, Urine Yellow (Yellow); Glucose, Dipstick Normal (Normal); Ketone-Dipstick Negative (Negative); Leukocyte Esterase-Dipstick Negative /ul (Negative); Nitrite-Dipstick Negative (Negative); Occult Blood-Urine Negative /ul (Negative); Protein-Dipstick Negative (Negative); Specific Gravity, Urine 1.005 (1.002-1.030); Urine Bilirubin Dipstick Negative (Negative); Urine Clarity Clear (Clear); Urine Urobilinogen Normal (Normal)
[2024-11-20 13:57] LABS: Microalbumin,Random Urine 12.1 mg/L (NO RANGE EST.)
[2024-11-20 14:21] LABS: ALB/GLOB Ratio 1.9 RATIO (0.9-2.4); AST(SGOT) 17 U/L (<=37); Alanine Aminotransfer ALT/SGPT 13 U/L (<=46); Albumin, Serum 4.6 g/dL (3.4-4.8); Alkaline Phosphatase 56 U/L (40-129); Anion Gap 14 (5-15); BUN 15 mg/dL (4-19); BUN/Creat Ratio 18.5 RATIO (10-20); Calcium,Total 9.7 mg/dL (7.6-11.0); Carbon Dioxide 22.8 mmol/L (21.0-32.0); Chloride 104 mmol/L (98-108); Creatinine, Serum 0.83 mg/dL (0.70-1.20); EST Glomerular Filtration Rate 97 (>60); Globulin 2.5 g/dL (2.2-4.2); Glucose 92 mg/dL (70-99); Potassium 4.2 mmol/L (3.3-5.1); Sodium Level 141 mmol/L (133-145); Total Bilirubin 0.94 mg/dL (0.00-1.30)
[2024-11-20 14:34] LABS: Microalbumin:Creatinine Ratio 272.5 mg/g CRE
[2024-11-20 21:03] LABS: Cholesterol 202 mg/dL (<=200); High Density Lipoprotein 57 mg/dL; Low Density Lipoprotein Calc. 130 mg/dL; Triglycerides 78 mg/dL; Very Low Density Lipoprotein 16 mg/dL (5-40); cholesterol:hdl ratio screen 3.56
[2024-11-20 21:05] LABS: PSA,Total- Diagnostic 4.33 ng/mL (0.00-4.00); Thyroid Stim Hormone (TSH) 0.946 uIU/mL (0.300-4.200); Vitamin D,25 Hydroxy 12.9 ng/mL (30-100)
== END | disposition home or self-care (01) ==
LOC: MTLAB 10:17
PROVIDERS: PCP Nurse Practitioner Family; Referring Provider Nurse Practitioner Family; Visit Provider Nurse Practitioner
DX: I10 Essential (primary) hypertension (principal); E78.1 Pure hyperglyceridemia; R97.20 Elevated prostate specific antigen [PSA]; Z13.21 Encounter for screening for nutritional disorder; R17 Unspecified jaundice
CPT/HCPCS: 36415; 80053; 80061; 81002; 82043; 82306; 82570; 84153; 84443; 85025

== ENCOUNTER → 2024-12-25 | Outpatient (CLI) | payer MEDICARE, SELFPAY ==
[2024-12-25 16:01] LABS: Absolute Lymphocyte Count 1.39 X10^3/uL (0.83-4.51); Absolute Neutrophil Count 4.2 X10^3/uL (2.0-7.7); Basophil# 0.04 X10^3/uL; Basophil% 0.6 % (0-1); Eosinophil# 0.02 X10^3/uL; Eosinophils% 0.3 % (0-5); Hematocrit 43.1 % (40-54); Hemoglobin 14.6 g/dL (13.0-16.5); Lymphocyte # 1.39 X10^3/ul (0.83-4.51); Lymphocyte % 22.2 % (19-41); Mean Corp Hgb Conc 33.9 g/dL (32-36); Mean Corpuscular Hgb 30.1 pg (27.0-32.0); Mean Corpuscular Volume 88.9 fL (80-94); Monocyte# 0.55 X10^3/uL; Monocyte% 8.8 % (0-10); NRBC Flagged by Analyzer 0 % (0-5); Neutrophil # 4.24 X10^3/uL (2.7-7.7); Neutrophil % 67.8 % (47-70); Platelet Count 151 K/mm3 (150-450); RBC Distribution Width CV 12.8 % (11.6-14.6); RBC Distribution Width SD 41.8 fl (35.1-43.9); Red Blood Count 4.85 M/mm3 (4.6-6.2); White Blood Count 6.3 K/mm3 (4.4-11.0)
[2024-12-25 16:30] LABS: Anion Gap 11 (5-15); BUN 21 mg/dL (4-19); BUN/Creat Ratio 21.8 RATIO (10-20); Calcium,Total 9.5 mg/dL (7.6-11.0); Carbon Dioxide 25.6 mmol/L (21.0-32.0); Chloride 104 mmol/L (98-108); Creatinine, Serum 0.95 mg/dL (0.70-1.20); EST Glomerular Filtration Rate 89 (>60); Glucose 88 mg/dL (70-99); LDH 200 U/L (87-241); Potassium 4.2 mmol/L (3.3-5.1); Sodium Level 140 mmol/L (133-145)
== END | disposition home or self-care (01) ==
PROVIDERS: PCP Nurse Practitioner Family; Referring Provider Nurse Practitioner Family; Visit Provider Nurse Practitioner Family
DX: I10 Essential (primary) hypertension (principal); R79.89 Other specified abnormal findings of blood chemistry
CPT/HCPCS: 36415; 80048; 83615; 85025

== ENCOUNTER → 2025-02-17 | Outpatient (CLI) | payer MEDICARE, SELFPAY ==
--- NOTE | 2025-02-17 08:36 | RDU_ITS ---
Reason For Study Reason For Study: HTN Right Renal Artery Left Renal Artery Right renal artery ostium 67.4/16.3 Left renal artery ostium 108.0/24.6 RSV/EDV. PSV/EDV. Right renal artery proximal 135.0/32.7 Left renal artery proximal PSV/EDV PSV/EDV. 118.9/31.2 . Right renal artery mid 63.7/27.2 PSV/EDV. Left renal artery mid 92.6/24.6 PSV/EDV . Right renal artery distal 114.9/41.8 Left renal artery distal 72.9/20.2 PSV/EDV. PSV/EDV. Right RAR 1.77. Left RAR 1.29. Right Renal Parenchyma Left Renal Parenchyma Upper Pole Medula 37.5/16.7 PSV/EDV. Left upper pole medulla 38.0/16.5 Right upper pole medulla EDR 0.40 . PSV/EDV . Right upper pole medulla R.I. 0.56 . Left upper pole medulla EDR 0.40 . Upper Sky Cortx 14.9/6.2 PSV/EDV. Left upper pole medulla R.I. 0.57 . Right upper pole cortex EDR 0.40 . UP Cortex 26.3/9.2 PSV/EDV. Right upper pole cortex R.I. 0.58 . Left upper pole cortex EDR 0.30 . Right lower Pole medulla 28.3/11.7 Left upper pole cortex R.I. 0.65 . PSV/EDV . Left lower Pole medulla 37.4/14.7 Right lower pole medulla EDR 0.40 . PSV/EDV . Right lower pole medulla R.I. 0.59 . Left lower pole medulla EDR 0.40 . Lower Pole Cortex 18.3/6.5 PSV/EDV. Left lower pole medulla R.I. 0.61 . Right lower pole cortex EDR 0.40 . Lower Pole Cortx 17.7/7.9 PSV/EDV. Right lower pole cortex R.I. 0.64 . Left lower pole cortex EDR 0.40 . Right Renal Hilar Left lower pole cortex R.I. 0.55 . Hilar avg 161.9/46.1 PSV/EDV . Left Renal Hilar hilar acceleration time 40 m/sec. LT Hilar avg 98.5/28.3 PSV/EDV . Right Renal Dimensions Left hilar acceleration time 30 m/sec. Right kidney size 11.63 cm . Left Renal Dimensions Right cortical dimension 2.10 cm . Left kidney size 11.69 cm . Left cortical dimension 1.55 cm . Aorta Proximal abdominal aorta 1.83 x 1.78 cm . Proximal abdominal aorta peak systolic velocity is 83.0 cm/sec . Distal abdominal aorta 2.00 x 1.76 cm . Distal abdominal aorta peak systolic velocity is 91.1 cm/sec . VL/Renal Artery Duplex Ultrasound Interpretation Summary Right renal artery patent with normal velocities and no evidence of stenosis. Left renal artery patent with normal velocities and no evidence of stenosis. Right renal vein patent. Left renal vein patent. Right kidney normal in size. Left kidney normal in size. Ordering Physician: Sandra Strong Referring Physician: Sandra Strong Performed By: Adrian Fuentes RVT
--- OUTSIDE RECORDS SUMMARY | 2025-02-17 09:42 | XMS RPT_ITS | CCD ---
Author Organization [facility] Care Team Providers Care Superintendent Laundry Name Role Phone Zoila Scherer DO Unavailable Alaina Lee LPN Unavailable Unavailable Tae PRESS SERVICE READER, Sandra Unavailable Unavailable Unavailable Anthony Gauthier Unavailable Dr. Zoila Scherer Primary Care Provider [phone] Dr. Zoila Scherer Referring Provider Jordy RODRIGUEZ, JENNIFER Logan Attending Provider Tae FELIPE, Sandra Unavailable [phone] Masood Santos MD Unavailable Tae NURSING INFORMATICS SPECIALIST-C Sandra Primary Care Provider Haley Butler Attending Provider Unavailable KRISTI Mac-C Sandra Referring Provider FriendDr. [place] Attending Provider [phone] Friend[address] [place] Other Provider Tae NURSING INFORMATICS SPECIALIST-C Sandra Primary Care Provider [phone] Tae NURSING INFORMATICS SPECIALIST-C, Sandra Referring Provider Delores Her Attending Provider Marley Macyn Primary Care Unavailable Husser, Delores Attending Unavailable TaeMarleyyn Referring Unavailable Tae, Sandra Primary Care Unavailable Husser Delores Referring Unavailable Husser, Delores Attending Unavailable Tae, Sandra Attending Unavailable Tae, Sandra Primary Care Unavailable Tae, Sandra Referring Unavailable Tae, Sandra Attending Unavailable Tae, Sandra Primary Care Unavailable Tae, Sandra Referring Unavailable Allergies Allergy Classification Reported Allergen(s) Allergy Type Date of Onset Reaction(s) Facility (12 sources) No known drug allergy (situation); Translations: [No known drug allergy (situation)] Allergy to substance (finding) [facility] Work Phone: Medications Current Medications Medication Drug Class(es) Dates Sig (Normalized) Sig (Original) [place] (Nk) (3 sources) Start: 10-02-2023 [place] (Nk) A ctive October 02, 2023 1:00am Start: 10-02-2023 [place] (Nk) A ctive October 02, 2023 12:00am Completed/Discontinued Medications Medication Drug Class(es) Dates Sig (Normalized) Sig (Original) amoxicillin 875 mg / clavulanate 125 mg oral tablet (4 sources) Penicillin-class Antibacterial Start: 04-03-2023 End: 09-20-2023 Amoxicillin-Pot Clavulanate 875-125 mg tablet Discontinued 1 {tbl} PO TWICE A DAY April 03, 2023 12:00am September 20, 2023 1:30pm Start: 04-03-2023 End: 09-20-2023 take 1 tablet by mouth twice daily Amoxicillin-Pot Clavulanate Discontinued 1 TABLET PO TWICE A DAY April 02, 2023 11:00pm September 20, 2023 12:30pm doxycycline hyclate 100 mg oral capsule (14 sources) Tetracycline-class Drug Start: 02-20-2023 End: 03-06-2023 take 1 capsule by mouth twice daily doxycycline hyclate 100 mg oral capsule 1 Capsule 2 times per day for 14 days Quantity: 28 {Capsule} Refills: 0 Ordered: 20-Feb-2023 Sandra Mac CNP Start : 20-Feb-2023 End : 06-Mar-2023 Inactive hydrALAZINE hydrochloride 25 mg oral tablet (14 sources) Arteriolar Vasodilator Start: 02-20-2023 End: 05-02-2023 take 1 tablet by mouth every eight hours as needed hydrALAZINE 25 mg oral tablet 1 (one) tablet every 8 hours as needed for systolic >170 or diastolic >100 for 0 days Quantity: 30 {Tablet} Refills: 0 Ordered: 02-May-2023 Alaina Lee LPN Start : 20-Feb-2023 End : 02-May-2023 Inactive Comments: Medication taken as needed. Comment on above: Medication taken as needed. predniSONE 10 mg oral tablet (20 sources) Start: 02-20-2023 End: 02-26-2023 take 1 tablet by mouth once daily predniSONE 10 mg oral tablet 1 Tablet As Directed;see taper instructions for 6 days Refills: 0 Ordered: 26-Feb-2023 Sandra Mac CNP Start : 20-Feb-2023 End : 26-Feb-2023 Inactive Comments: 60mg qd x 5 days then 40mg qd x 1 day then 30mg x 1 day then 20 mg x 1 day then 10 mg x 1 day. Start: 02-19-2023 End: 04-03-2023 take 6 tablets by mouth once daily, then take 4 tablets by mouth once daily, then take 3 tablets by mouth once daily, then take 2 tablets by mouth once daily, then take 1 tablet by mouth once daily Prednisone 10 mg tablet Discontinued 10 mg PO DAILY 40 February 19, 2023 12:00am April 03, 2023 7:02am 6 po qd x 5 d, 4 po qd x 1 d, 3 po qd x 1 d, 2 po qd x 1 d, then 1 po qd x 1 d Comment on above: 60mg qd x 5 days the n 40mg qd x 1 day then 30mg x 1 day then 20 mg x 1 day then 10 mg x 1 day. sulfamethoxazole 800 mg / trimethoprim 160 mg oral tablet (4 sources) Dihydrofolate Reductase Inhibitor Antibacterial, Sulfonamide Antimicrobial Start: End: take 2 tablets by mouth twice daily sulfamethoxazole-tr imethoprim 800-160 mg oral tablet 2 Tablet 2 times per day for 10 days Quantity: 20 {Tablet} Refills: 0 Ordered: 17-Apr-2023 Sandra Mac CNP Start : 17-Apr-2023 End : 27-Apr-2023 Inactive valACYclovir 500 mg oral tablet (12 sources) Herpesvirus Nucleoside Analog DNA Polymerase Inhibitor, Herpes Simplex Virus Nucleoside Analog DNA Polymerase Inhibitor, Herpes Zoster Virus Nucleoside Analog DNA Polymerase Inhibitor Start: End: take 2 tablets by mouth twice daily valACYclovir 500 mg oral tablet 2 Tablet 2 times per day for 10 days Quantity: 40 {Tablet} Refills: 0 Ordered: 26-Feb-2023 Sandra Mac CNP Start : 26-Feb-2023 End : 08-Mar-2023 Inactive Problems Active Problems Problem Classification Problem Date Documented Da te Episodic/Chronic Acute cerebrovascular disease (14 sources) Subdural hematoma; 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 Chronic Comment on above: 2010, craniotomy Carolyn cy Urich Diabetes mellitus without complication (20 sources) Hyperglycemia; Translations: [Elevated fasting glucose] 02-21-2023 Episodic Disorders of lipid metabolism (20 sources) Hypertriglyceridemia ; Translations: [Hypertriglyceridemi a] 02-27-2023 Chronic E Codes: Natural/environment (20 sources) Tick bite; Translations: [Tick bite] 02-20-2023 Episodic Essential hypertension (10 sources) Elevated blood pressure; Translations: [Essential (primary) hypertension] Onset: 12-30-2024 02-19-2023 Chronic Hypertension with complications and secondary hypertension (20 sources) Hypertensive urgency ; Translations: [Hypertensive urgency] 02-20-2023 Chronic Comment on above: anxiety related vs a cute due to tick bite. prn med only for now, is monitoring at home and not really having many elevations, staying around 120-130 systolic. NO meds for now but did give him some PRN hydralazine. 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 Gauthier 02/21, will get MRI w/ w/out contrast, referral to him, starting valalcyclovir 1gm bid 10 days, getting additional labs. avoid patch (prevent corneal abrasion), may tape. report to ER if symptoms progress.continue prednisone. --CT brain w/contrast 02/20 negative for acute findings. Other nutritional; endocrine; and metabolic disorders (20 sources) Overweight in adulthood with body mass index of 25 or more but less than 30; Translations: [BMI 27.0-27.9,adult] 02-20-2023 Episodic Residual codes; unclassified (20 sources) Non-smoker; Translations: [Nonsmoker] 02-20-2023 Episodic Skin and subcutaneous tissue infections (17 sources) Cellulitis of forearm; Translations: [Cellulitis of left upper limb] 04-03-2023 Episodic Comment on above: ? I&DLFA, hit on met al in a santos. flushed but redness started within 24 hours tx day Keephraim, Dr. Ash did I&D.05/02: improving. some firm areas. still some packing. education provided. warm compresses, massage tissue. call if increased pain, swelling, redness, any discharge, etc.LFA, hit on metal in a santos. flushed but redness started within 24 hours, rapidly spread entire forearm Past or Other Problems Problem Classification Problem Date Documented Date Episodic/Chronic Other screening for suspected conditions (not mental disorders or infectious disease) (20 sources) Patient encounter status; Translations: [Encounter for lipid screening for cardiovascular disease] Onset: 06-16-2024 02-21-2023 Episodic Unclassified (19 sources) Results Test Name Value Interpretation Reference Range Facility Basic Metabolic Profile (BMP )on 12-25-2024 BUN/CRE 21.8 RATIO High 06-22 [facility] Comment on above: Performed By: #### L 100.0100, L500.2500, L504.2610 #### [facility] [address] [place], [address] Calcium [Mass/Vol] 9.5 mg/dL Normal 7.6-11.[address] [facility] Comment on above: Performed By: #### L 100.0100, L500.2500, L504.2610 #### [facility] [address] [place], [address] Chloride [Moles/Vol] 104 mmol/L Normal 98-108 [facility] Comment on above: Performed By: #### L 100.0100, L500.2500, L504.2610 #### [facility] [address] [place], [address] CO2 [Moles/Vol] 25.6 mmol/L Normal 21.0-32.0 [facility] Comment on above: Performed By: #### L 100.0100, L500.2500, L504.2610 #### [facility] [address] [place], [address] Creatinine [Mass/Vol] 0.95 mg/dL Normal 0.70-1.20 [facility] Comment on above: Performed By: #### L 100.0100, L500.2500, L504.2610 #### [facility] [address] [place], [address] GAP 11 Normal 5-15 [facility] Comment on above: Performed By: #### L 100.0100, L500.2500, L504.2610 #### [facility] [address] [place], [address] GFR/1.73 sq M.predicted among non-blacks MDRD (S/P/Bld) [Vol rate/Area] 89 mL/min/{1.73_m2} Normal >60 [facility] Comment on above: Result Comment: mL/m in/1.73m2 CKD-EPI Creatinine Equation (2020) Performed By: #### L 100.0100, L500.2500, L504.2610 #### [facility] [address] [place], [address] Glucose [Mass/Vol] 88 mg/dL Normal 70-[address] [facility] Comment on above: Performed By: #### L 100.0100, L500.2500, L504.2610 #### [facility] [address] [place], [address] Potassium [Moles/Vol] 4.2 mmol/L Normal 3.3-5.1 [facility] Comment on above: Performed By: #### L 100.0100, L500.2500, L504.2610 #### [facility] [address] [place], [address] Sodium [Moles/Vol] 140 mmol/L Normal 133-[address] [facility] Comment on above: Performed By: #### L 100.0100, L500.2500, L504.2610 #### [facility] [address] [place], [address] Urea nitrogen [Mass/Vol] 21 mg/dL High 4-19 [facility] Comment on above: Performed By: #### L 100.0100, L500.2500, L504.2610 #### [facility] [address] [place], [address] CBC W/Diff, Automatedon - Absolute Lymph 1.39 X10 3/uL Normal 0.83-4.51 [facility] Comment on above: Performed By: #### L 100.0100, L500.2500, L504.2610 #### [facility] [address] [place], [address] Absolute Neut 4.2 X10 3/uL Normal 2.0-7.7 [facility] Comment on above: Performed By: #### L 100.0100, L500.2500, L504.2610 #### [facility] [address] [place], [address] Basophils/100 WBC (Bld) 0.6 % Normal 0-1 [facility] Comment on above: Performed By: #### L 100.0100, L500.2500, L504.2610 #### [facility] [address] [place], [address] Eosinophils/100 WBC (Bld) 0.3 % Normal 0-5 [facility] Comment on above: Performed By: #### L 100.0100, L500.2500, L504.2610 #### [facility] [address] [place], [address] Erythrocyte distribution width (RBC) [Ratio] 12.8 % Normal 11.6-14.6 [facility] Comment on above: Performed By: #### L 100.0100, L500.2500, L504.2610 #### [facility] [address] [place], [address] Hematocrit (Bld) [Volume fraction] 43.1 % Normal 40-54 [facility] Comment on above: Performed By: #### L 100.0100, L500.2500, L504.2610 #### [facility] [address] [place], [address] Hemoglobin (Bld) [Mass/Vol] 14.6 g/dL Normal 13.0-16.5 [facility] Comment on above: Performed By: #### L 100.0100, L500.2500, L504.2610 #### [facility] [address] [place], [address] IG% 0.300 Normal 0.0-0.9 [facility] Comment on above: Result Comment: IG% - Immature Granulocytes (promyelocytes, myelocytes and metamyelocytes) > 1% indicates that a LEFT SHIFT is Present. Performed By: #### L 100.0100, L500.2500, L504.2610 #### [facility] [address] [place], [address] Lymphocytes/100 WBC (Bld) 22.2 % Normal 19-41 [facility] Comment on above: Performed By: #### L 100.0100, L500.2500, L504.2610 #### [facility] [address] [place], [address] MCH (RBC) [Entitic mass] 30.1 pg Normal 27.0-32.0 [facility] Comment on above: Performed By: #### L 100.0100, L500.2500, L504.2610 #### [facility] [address] [place], [address] MCHC (RBC) [Mass/Vol] 33.9 g/dL Normal 32-36 [facility] Comment on above: Performed By: #### L 100.0100, L500.2500, L504.2610 #### [facility] [address] [place] [place], [address] MCV (RBC) [Entitic vol] 88.9 fL Normal 80-94 [facility] Comment on above: Performed By: #### L 100.0100, L500.2500, L504.2610 #### [facility] [address] [place], [address] Monocytes/100 WBC (Bld) 8.8 % Normal 0-10 [facility] Comment on above: Performed By: #### L 100.0100, L500.2500, L504.2610 #### [facility] [address] [place], [address] Neutrophils/100 WBC (Bld) 67.8 % Normal 47-70 [facility] Comment on above: Performed By: #### L 100.0100, L500.2500, L504.2610 #### [facility] [address] [place], [address] Nucleated RBC (Bld) [#/Vol] 0 10*3/uL Normal 0-5 [facility] Comment on above: Performed By: #### L 100.0100, L500.2500, L504.2610 #### [facility] [address] [place], [address] Platelet mean volume (Bld) [Entitic vol] 13.0 fL High 6.2-12.0 [facility] Comment on above: Performed By: #### L 100.0100, L500.2500, L504.2610 #### [facility] [address] [place], [address] Platelets (Bld) [#/Vol] 151 10*3/uL Normal 150-450 [facility] Comment on above: Performed By: #### L 100.0100, L500.2500, L504.2610 #### [facility] [address] [place], [address] RBC (Bld) [#/Vol] 4.85 10*6/uL Normal 4.6-6.2 [facility] Comment on above: Performed By: #### L 100.0100, L500.2500, L504.2610 #### [facility] [address] [place], [address] RDW SD 41.8 fl Normal 35.1-43.9 [facility] Comment on above: Performed By: #### L 100.0100, L500.2500, L504.2610 #### [facility] [address] [place], [address] WBC (Bld) [#/Vol] 6.3 10*3/uL Normal 4.4-11.[address] [facility] Comment on above: Performed By: #### L 100.0100, L500.2500, L504.2610 #### [facility] [address] [place], [address] LDHon 12-25-2024 LDH 200 U/L Normal 87-241 [facility] Comment on above: Order Comment: 1 Performed By: #### L 100.0100, L500.2500, L504.2610 #### [facility] [address] [place], [address] Absolute neutrophil countOrd ered By: Delores Her on 11-20-2024 Neutrophils (Bld) [#/Vol] 2.6 10*3/uL 2.0-7.7 [facility] Albumin DL <= 20 mg/L (U) [M ass/Vol]Ordered By: Delores Davising on 11-20-2024 Urine Random Microalbumin 12.1 mg/L NO RANGE EST. [facility] Anion gap in Serum or Plasma Ordered By: Delores Husser on 11-20-2024 Anion gap [Moles/Vol] 14 mmol/L 01-15 [facility] BUN/creatinine ratioOrdered By: Delores Husser on 11-20-2024 Urea nitrogen/Creatinine [Mass ratio] 18.5 mg/mg - [facility] Basophil percentageOrdered B y: Delores Husser on 11-20-2024 Basophils/100 WBC (Bld) 0.7 % 0-1 [facility] Bilirubin Test strip Ql (U)O rdered By: Delores Husser on 11-20-2024 Bilirubin Ql (U) Negative Negative [facility] Bilirubin, totalOrdered By: Delores Husser on 11-20-2024 Bilirubin [Mass/Vol] 0.94 mg/dL 0.00-1.30 [facility] CBC W/Diff, Automatedon 11-02 Absolute Lymph 1.13 X10 3/uL Normal 0.83-4.51 [facility] Comment on above: Performed By: #### L 100.0100, L506.1001, L4.2010, L501.9940, L500.4050, L502.0250, L501.9520, L500.4100 #### [facility] [address] [place], [address] Absolute Neut 2.6 X10 3/uL Normal 2.0-7.7 [facility] Comment on above: Performed By: #### L 100.0100, L506.1001, L4.2010, L501.9940, L500.4050, L502.0250, L501.9520, L500.4100 #### [facility] [address] [place], [address] Basophils/100 WBC (Bld) 0.7 % Normal 0-1 [facility] Comment on above: Performed By: #### L 100.0100, L506.1001, L400.2010, L501.9940, L500.4050, L502.0250, L501.9520, L500.4100 #### [facility] [address] [place], [address] Eosinophils/100 WBC (Bld) 0.7 % Normal 0-5 [facility] Comment on above: Performed By: #### L 100.0100, L506.1001, L400.2010, L501.9940, L500.4050, L502.0250, L501.9520, L500.4100 #### [facility] [address] [place], [address] Erythrocyte distribution width (RBC) [Ratio] 12.7 % Normal 11.6-14.6 [facility] Comment on above: Performed By: #### L 100.0100, L506.1001, L400.2010, L501.9940, L500.4050, L502.0250, L501.9520, L500.4100 #### [facility] [address] [place], [address] Hematocrit (Bld) [Volume fraction] 43.8 % Normal 40-54 [facility] Comment on above: Performed By: #### L 100.0100, L506.1001, L400.2010, L501.9940, L500.4050, L502.0250, L501.9520, L500.4100 #### [facility] [address] [place], [address] Hemoglobin (Bld) [Mass/Vol] 14.8 g/dL Normal 13.0-16.5 [facility] Comment on above: Performed By: #### L 100.0100, L506.1001, L400.2010, L501.9940, L500.4050, L502.0250, L501.9520, L500.4100 #### [facility] [address] [place], [address] IG% 0.200 Normal 0.0-0.9 [facility] Comment on above: Result Comment: IG% - Immature Granulocytes (promyelocytes, myelocytes and metamyelocytes) > 1% indicates that a LEFT SHIFT is Present. Performed By: #### L 100.0100, L506.1001, L400.2010, L501.9940, L500.4050, L502.0250, L501.9520, L500.4100 #### [facility] [address] [place], [address] Lymphocytes/100 WBC (Bld) 26.7 % Normal 19-41 [facility] Comment on above: Performed By: #### L 100.0100, L506.1001, L400.2010, L501.9940, L500.4050, L502.0250, L501.9520, L500.4100 #### [facility] [address] [place], [address] MCH (RBC) [Entitic mass] 29.6 pg Normal 27.0-32.0 [facility] Comment on above: Performed By: #### L 100.0100, L506.1001, L400.2010, L501.9940, L500.4050, L502.0250, L501.9520, L500.4100 #### [facility] [address] [place], [address] MCHC (RBC) [Mass/Vol] 33.8 g/dL Normal 32-36 [facility] Comment on above: Performed By: #### L 100.0100, L506.1001, L400.2010, L501.9940, L500.4050, L502.0250, L501.9520, L500.4100 #### [facility] [address] [place], [address] MCV (RBC) [Entitic vol] 87.6 fL Normal 80-94 [facility] Comment on above: Performed By: #### L 100.0100, L506.1001, L400.2010, L501.9940, L500.4050, L502.0250, L501.9520, L500.4100 #### [facility] [address] [place], [address] Monocytes/100 WBC (Bld) 9.2 % Normal 0-10 [facility] Comment on above: Performed By: #### L 100.0100, L506.1001, L400.2010, L501.9940, L500.4050, L502.0250, L501.9520, L500.4100 #### [facility] [address] [place], [address] Neutrophils/100 WBC (Bld) 62.5 % Normal 47-70 [facility] Comment on above: Performed By: #### L 100.0100, L506.1001, L400.2010, L501.9940, L500.4050, L502.0250, L501.9520, L500.4100 #### [facility] [address] [place], [address] Nucleated RBC (Bld) [#/Vol] 0 10*3/uL Normal 0-5 [facility] Comment on above: Performed By: #### L 100.0100, L506.1001, L400.2010, L501.9940, L500.4050, L502.0250, L501.9520, L500.4100 #### [facility] [address] [place], [address] Platelet mean volume (Bld) [Entitic vol] 12.5 fL High 6.2-12.0 [facility] Comment on above: Performed By: #### L 100.0100, L506.1001, L400.2010, L501.9940, L500.4050, L502.0250, L501.9520, L500.4100 #### [facility] [address] [place], [address] Platelets (Bld) [#/Vol] 144 10*3/uL Low 150-450 [facility] Comment on above: Performed By: #### L 100.0100, L506.1001, L400.2010, L501.9940, L500.4050, L502.0250, L501.9520, L500.4100 #### [facility] [address] [place], [address] RBC (Bld) [#/Vol] 5.00 10*6/uL Normal 4.6-6.2 [facility] Comment on above: Performed By: #### L 100.0100, L506.1001, L400.2010, L501.9940, L500.4050, L502.0250, L501.9520, L500.4100 #### [facility] [address] [place], [address] RDW SD 40.8 fl Normal 35.1-43.9 [facility] Comment on above: Performed By: #### L 100.0100, L506.1001, L400.2010, L501.9940, L500.4050, L502.0250, L501.9520, L500.4100 #### [facility] [address] [place], [address] WBC (Bld) [#/Vol] 4.2 10*3/uL Low 4.4-11.[address] [facility] Comment on above: Performed By: #### L 100.0100, L506.1001, L400.2010, L501.9940, L500.4050, L502.0250, L501.9520, L500.4100 #### [facility] [address] [place], [place], [address] Calculated very low density lipoprotein (VLDL) cholesterol measurementOrdered By: Delores Her on 11-20-2024 VLDL Cholesterol 16 mg/dL 5-40 [facility] Carbon dioxide, total [Moles /volume] in Central venous bloodOrdered By: Delores Her on 11-20-2024 CO2 [Moles/Vol] 22.8 mmol/L 21.0-32.0 [facility] Chloride assayOrdered By: Albaro Her on 11-20-2024 Chloride [Moles/Vol] 104 mmol/L 98-108 [facility] Comprehensive Metabolic Prof ilon 11-20-2024 Albumin [Mass/Vol] 4.6 g/dL Normal 3.4-4.[address] [facility] Comment on above: Order Comment: TRAVON HER GETS RESULTS FOR PSA AND COMPREHENSIVE MEDICINE GETS RESULTS FOR ALL OTHER LABS Performed By: #### L 100.0100, L506.1001, L4, L501.9940, L500.4050, L502.0250, L501.9520, L500.4100 #### [facility] [address] [place], [address] Albumin/Globulin [Mass ratio] 1.9 {ratio} Normal 0.9-2.4 [facility] Comment on above: Order Comment: TRAVON DAVISING GETS RESULTS FOR PSA AND COMPREHENSIVE MEDICINE GETS RESULTS FOR ALL OTHER LABS Performed By: #### L 100.0100, L506.1001, L4, L501.9940, L500.4050, L502.0250, L501.9520, L500.4100 #### [facility] [address] [place], [place], [address] ALK PHOS 56 U/L Normal 40-129 [facility] Comment on above: Order Comment: TRAVON DAVISING GETS RESULTS FOR PSA AND COMPREHENSIVE MEDICINE GETS RESULTS FOR ALL OTHER LABS Performed By: #### L 100.0100, L506.1001, L4, L501.9940, L500.4050, L502.0250, L501.9520, L500.4100 #### [facility] [address] [place], [address] ALT [Catalytic activity/Vol] 13 U/L Normal <=46 [facility] Comment on above: Order Comment: TRAVON REIS FIELDING GETS RESULTS FOR PSA AND COMPREHENSIVE MEDICINE GETS RESULTS FOR ALL OTHER LABS Performed By: #### L 100.0100, L506.1001, L400.2010, L501.9940, L500.4050, L502.0250, L501.9520, L500.4100 #### [facility] [address] [place], [address] AST [Catalytic activity/Vol] 17 U/L Normal <=37 [facility] Comment on above: Order Comment: TRAVON REIS FIELDING GETS RESULTS FOR PSA AND COMPREHENSIVE MEDICINE GETS RESULTS FOR ALL OTHER LABS Performed By: #### L 100.0100, L506.1001, L4, L501.9940, L500.4050, L502.0250, L501.9520, L500.4100 #### [facility] [address] [place], [address] Bilirubin [Mass/Vol] 0.94 mg/dL Normal 0.00-1.30 [facility] Comment on above: Order Comment: TRAVON REIS FIELDING GETS RESULTS FOR PSA AND COMPREHENSIVE MEDICINE GETS RESULTS FOR ALL OTHER LABS Performed By: #### L 100.0100, L506.1001, L4.2010, L501.9940, L500.4050, L502.0250, L501.9520, L500.4100 #### [facility] [address] [place], [address] BUN/CRE 18.5 RATIO Normal 10-20 [facility] Comment on above: Order Comment: TRAVON REIS FIELDING GETS RESULTS FOR PSA AND COMPREHENSIVE MEDICINE GETS RESULTS FOR ALL OTHER LABS Performed By: #### L 100.0100, L506.1001, L4, L501.9940, L500.4050, L502.0250, L501.9520, L500.4100 #### [facility] [address] [place], [address] Calcium [Mass/Vol] 9.7 mg/dL Normal 7.6-11.[address] [facility] Comment on above: Order Comment: TRAVON REIS FIELDING GETS RESULTS FOR PSA AND COMPREHENSIVE MEDICINE GETS RESULTS FOR ALL OTHER LABS Performed By: #### L 100.0100, L506.1001, L400.2010, L501.9940, L500.4050, L502.0250, L501.9520, L500.4100 #### [facility] [address] [place], [address] Chloride [Moles/Vol] 104 mmol/L Normal 98-108 [facility] Comment on above: Order Comment: TRAVON REIS FIELDING GETS RESULTS FOR PSA AND COMPREHENSIVE MEDICINE GETS RESULTS FOR ALL OTHER LABS Performed By: #### L 100.0100, L506.1001, L400.2010, L501.9940, L500.4050, L502.0250, L501.9520, L500.4100 #### [facility] [address] [place], [address] CO2 [Moles/Vol] 22.8 mmol/L Normal 21.0-32.0 [facility] Comment on above: Order Comment: TRAVON REIS FIELDING GETS RESULTS FOR PSA AND COMPREHENSIVE MEDICINE GETS RESULTS FOR ALL OTHER LABS Performed By: #### L 100.0100, L506.1001, L4.2010, L501.9940, L500.4050, L502.0250, L501.9520, L500.4100 #### [facility] [address] [place], [address] Creatinine [Mass/Vol] 0.83 mg/dL Normal 0.70-1.20 [facility] Comment on above: Order Comment: TRAVON REIS FIELDING GETS RESULTS FOR PSA AND COMPREHENSIVE MEDICINE GETS RESULTS FOR ALL OTHER LABS Performed By: #### L 100.0100, L506.1001, L400.2010, L501.9940, L500.4050, L502.0250, L501.9520, L500.4100 #### [facility] [address] [place], [address] GAP 14 Normal 5-15 [facility] Comment on above: Order Comment: TRAVON DAVISING GETS RESULTS FOR PSA AND COMPREHENSIVE MEDICINE GETS RESULTS FOR ALL OTHER LABS Performed By: #### L 100.0100, L506.1001, L400.2010, L501.9940, L500.4050, L502.0250, L501.9520, L500.4100 #### [facility] [address] [place], [address] GFR/1.73 sq M.predicted among non-blacks MDRD (S/P/Bld) [Vol rate/Area] 97 mL/min/{1.73_m2} Normal >60 [facility] Comment on above: Order Comment: TRAVON REIS FIELDING GETS RESULTS FOR PSA AND COMPREHENSIVE MEDICINE GETS RESULTS FOR ALL OTHER LABS Result Comment: mL/m in/1.73m2 CKD-EPI Creatinine Equation (2020) Performed By: #### L 100.0100, L506.1001, L4.2010, L501.9940, L500.4050, L502.0250, L501.9520, L500.4100 #### [facility] [address] [place], [address] Globulin (S) [Mass/Vol] 2.5 g/dL Normal 2.2-4.2 [facility] Comment on above: Order Comment: TRAVON DAVISING GETS RESULTS FOR PSA AND COMPREHENSIVE MEDICINE GETS RESULTS FOR ALL OTHER LABS Performed By: #### L 100.0100, L506.1001, L400.2010, L501.9940, L500.4050, L502.0250, L501.9520, L500.4100 #### [facility] [address] [place], [address] Glucose [Mass/Vol] 92 mg/dL Normal 70-[address] [facility] Comment on above: Order Comment: KRRACHEL EN FIELDING GETS RESULTS FOR PSA AND COMPREHENSIVE MEDICINE GETS RESULTS FOR ALL OTHER LABS Performed By: #### L 100.0100, L506.1001, L400.2010, L501.9940, L500.4050, L502.0250, L501.9520, L500.4100 #### [facility] [address] [place], [address] Potassium [Moles/Vol] 4.2 mmol/L Normal 3.3-5.1 [facility] Comment on above: Order Comment: KRIST EN FIELDING GETS RESULTS FOR PSA AND COMPREHENSIVE MEDICINE GETS RESULTS FOR ALL OTHER LABS Performed By: #### L 100.0100, L506.1001, L4, L501.9940, L500.4050, L502.0250, L501.9520, L500.4100 #### [facility] [address] [place], [address] Sodium [Moles/Vol] 141 mmol/L Normal 133-[address] [facility] Comment on above: Order Comment: KRIST EN FIELDING GETS RESULTS FOR PSA AND COMPREHENSIVE MEDICINE GETS RESULTS FOR ALL OTHER LABS Performed By: #### L 100.0100, L506.1001, L4.2010, L501.9940, L500.4050, L502.0250, L501.9520, L500.4100 #### [facility] [address] [place], [address] T PROT 7.0 g/dL Normal 5.9-8.4 [facility] Comment on above: Order Comment: KRIST EN FIELDING GETS RESULTS FOR PSA AND COMPREHENSIVE MEDICINE GETS RESULTS FOR ALL OTHER LABS Performed By: #### L 100.0100, L506.1001, L4.2010, L501.9940, L500.4050, L502.0250, L501.9520, L500.4100 #### [facility] [address] [place], [address] Urea nitrogen [Mass/Vol] 15 mg/dL Normal 4-19 [facility] Comment on above: Order Comment: TRAVON HER GETS RESULTS FOR PSA AND COMPREHENSIVE MEDICINE GETS RESULTS FOR ALL OTHER LABS Performed By: #### L 100.0100, L506.1001, L400.2011, L501.9940, L500.4050, L502.0250, L501.9520, L500.4100 #### [facility] [address] [place], [address] Creatinine Unsp time (U) [Ma ss/Vol]Ordered By: Delores Her on 11-20-2024 Creatinine (U) [Mass/Vol] 44.40 mg/dL 39.00-259.0 0 [facility] Diagnostic total prostate sp ecific antigen (PSA) measurementOrdered By: Delores Her on 11-20-2024 Prostate Specific Antigen Total 4.33 ng/mL High 0.00-4.00 [facility] Comment on above: This test was perfor med using the [employer] tPSA method. Measured values of a patient sample can vary depending on the testing procedure used. PSA values determined on patient samples by different testing procedures cannot be used interchangeably. If there is a change in PSA assays while monitoring therapy, sequential testing should be performed to confirm baseline values. Eosinophil percentageOrdered By: Delores Davising on 11-20-2024 Eosinophils/100 WBC (Bld) 0.7 % 0-5 [facility] Erythrocyte distribution wid th ratioOrdered By: Delores Davising on 11-20-2024 Erythrocyte distribution width (RBC) [Ratio] 12.7 % 11.6-14.6 [facility] Erythrocyte distribution wid th standard deviationOrdered By: Delores Davising on 11-20-2024 Erythrocyte distribution width (RBC) [Entitic vol] 40.8 fL 35.1-43.9 [facility] GFR/1.73 sq M.predicted fela g non-blacks MDRD (S/P/Bld) [Vol rate/Area]Ordered By: Delores Her on 11-20-2024 Estimated GFR (MDRD) Non-Af Amer 97 >60 [facility] Comment on above: mL/min/1.73m2 CKD-EP I Creatinine Equation (2020) Glucose Ql (U)Ordered By: Albaro Her on 11-20-2024 Urine Glucose (UA) Normal mg/dl Normal [facility] Hematocrit Auto (Bld) [Volum e fraction]Ordered By: Delores Her on 11-20-2024 Hematocrit (Bld) [Volume fraction] 43.8 % 40-54 [facility] Hemoglobin measurementOrdere d By: Delores Her on 11-20-2024 Hemoglobin (Bld) [Mass/Vol] 14.8 g/dL 13.0-16.5 [facility] Immature granulocytes/100 WB C Auto (Bld)Ordered By: Delores Her on 11-20-2024 Immature granulocytes/100 WBC (Bld) 0.200 % 0.0-0.9 [facility] Comment on above: IG% - Immature Granu locytes (promyelocytes, myelocytes and metamyelocytes) > 1% indicates that a LEFT SHIFT is Present. Ketones Test strip Ql (U)Ord ered By: Delores Her on 11-20-2024 Ketones Ql (U) Negative Negative [facility] L506.1001on 11-20-2024 Vitamin D 25-OH 12.9 ng/mL Low 30-100 [facility] Comment on above: Order Comment: TRAVON HER GETS RESULTS FOR [facility] GETS RESULTS FOR ALL OTHER LABS Result Comment: Gerda min D Status Deficiency: <20 ng/mL (50nmol/L) Insufficiency: 20-30 ng/mL (50-75 nmol/L) Sufficiency: 30-100 ng/mL (75-250 nmol/L) Toxicity: >100 ng/mL (>250 nmol/L) Performed By: #### L 100.0100, L500.2500, L504.2610 #### [facility] [address] [place], [place], [address] LDL calc ser/plasOrdered By: Dleores Her on 11-20-2024 LDL Cholesterol, Calculated 130 mg/dL [facility] Comment on above: Cksshhsbqe=161-890 m g/dL & Higher Btqh=076 mg/dL or greater Laboratory - Chemistry and C hemistry - challengeOrdered By: Delores Her on 11-20-2024 AST [Catalytic activity/Vol] 17 U/L <38 [facility] Lipid Profileon 11-20-2024 CHOL:HDL 3.56 Normal [facility] Comment on above: Order Comment: TRAVON HER GETS RESULTS FOR PSA AND COMPREHENSIVE MEDICINE GETS RESULTS FOR ALL OTHER LABS Performed By: #### L 100.0100, L506.1001, L400.2010, L501.9940, L500.4050, L502.0250, L501.9520, L500.4100 #### [facility] [address] [place], [address] Cholesterol [Mass/Vol] 202 mg/dL High <=200 [facility] Comment on above: Order Comment: TRAVON HER GETS RESULTS FOR PSA AND COMPREHENSIVE MEDICINE GETS RESULTS FOR ALL OTHER LABS Result Comment: Chol esterol level, Desirable <200 mg/dL Borderline high cholesterol 200-239 mg/dL High cholesterol >=240 mg/dL Recommendations of the NCEP Adult Treatment Panel for the following risk-cutoff thresholds for the [place] population. Performed By: #### L 100.0100, L506.1001, L400.2010, L501.9940, L500.4050, L502.0250, L501.9520, L500.4100 #### [facility] [address] [place], [address] Cholesterol in HDL [Mass/Vol] 57 mg/dL Normal [facility] Comment on above: Order Comment: TRAVON HER GETS RESULTS FOR PSA AND COMPREHENSIVE MEDICINE GETS RESULTS FOR ALL OTHER LABS Result Comment: Denae onal Cholesterol Education Program (NCEP) guidelines: <40 mg/dL: Low HDL-cholesterol (major risk factor for CHD) >= 60 mg/dL: High HDL-cholesterol (negative risk factor for CHD) HDL-cholesterol is affected by a number of factors, e.g. smoking, exercise, hormones, sex and age. Performed By: #### L 100.0100, L506.1001, L400.2010, L501.9940, L500.4050, L502.0250, L501.9520, L500.4100 #### [facility] [address] [place], [address] Cholesterol in LDL [Mass/Vol] 130 mg/dL Normal [facility] Comment on above: Order Comment: TRAVON REIS FIELDING GETS RESULTS FOR PSA AND COMPREHENSIVE MEDICINE GETS RESULTS FOR ALL OTHER LABS Result Comment: Bord ecgxxt=427-623 mg/dL Higher Orep=757 mg/dL or greater Performed By: #### L 100.0100, L506.1001, L4, L501.9940, L500.4050, L502.0250, L501.9520, L500.4100 #### [facility] [address] [place], [address] Cholesterol in VLDL [Mass/Vol] 16 mg/dL Normal 5-40 [facility] Comment on above: Order Comment: TRAVON EN FIELDING GETS RESULTS FOR PSA AND COMPREHENSIVE MEDICINE GETS RESULTS FOR ALL OTHER LABS Performed By: #### L 100.0100, L506.1001, L4, L501.9940, L500.4050, L502.0250, L501.9520, L500.4100 #### [facility] [address] [place], [address] Triglyceride [Mass/Vol] 78 mg/dL Normal [facility] Comment on above: Order Comment: KRIST EN FIELDING GETS RESULTS FOR PSA AND COMPREHENSIVE MEDICINE GETS RESULTS FOR ALL OTHER LABS Result Comment: The drugs N-Acetylcysteine and Metamizole may falsely depress this assay. Normal range: <150 mg/dL Borderline High: 150-199 mg/dL High: 200-499 mg/dL Very High: >500 mg/dL Performed By: #### L 100.0100, L506.1001, L4, L501.9940, L500.4050, L502.0250, L501.9520, L500.4100 #### [facility] [address] [place], [place], [id number] Lymphocytes Auto (Unsp spec) [#/Vol]Ordered By: Delores Husser on 11-20-2024 Lymphocytes (Bld) [#/Vol] 1.13 10*3/uL 0.83-4.51 [facility] Lymphocytes/100 WBC Auto (Un sp spec)Ordered By: Delores Husser on 11-20-2024 Lymphocytes/100 WBC (Bld) 26.7 % 19-41 [facility] MCV (mean corpuscular volume ) determinationOrdered By: Delores Husser on 11-20-2024 MCV (RBC) [Entitic vol] 87.6 fL 80-94 [facility] Mean corpuscular hemoglobin (MCH) determinationOrdered By: Delores Husser on 11-20-2024 MCH (RBC) [Entitic mass] 29.6 pg 27.0-32.0 [facility] Mean corpuscular hemoglobin concentration (MCHC) determinationOrdered By: Delores Husser on 11-20-2024 MCHC (RBC) [Mass/Vol] 33.8 g/dL 32-36 [facility] Mean platelet volume determi nationOrdered By: Delores Husser on 11-20-2024 Platelet mean volume (Bld) [Entitic vol] 12.5 fL High 6.2-12.0 [facility] Microalb:Creat Ratio,Random URon 11-20-2024 Creatinine [Mass/Vol] 44.40 mg/dL Normal 39.00- 259.0 0 [facility] Comment on above: Performed By: #### L 100.0100, L506.1001, L400.2010, L501.9940, L500.4050, L502.0250, L501.9520, L500.4100 #### [facility] [address] [place], [address] Microalbumin/creat ratio urO rdered By: Delores Husser on 11-20-2024 Urine Microalbumin/Creatinin e Ratio 272.5 mg/g CRE [facility] Comment on above: Previous reported re sult: 272.5 mg/g CREEdited by: BRAN on 11/20/24:1433 AMENDED REPORT 11/20/24 1433 MALB:CREAT previously reported as: 272.5 mg/g CRE Monocyte percentageOrdered B y: Delores Her on 11-20-2024 Monocytes/100 WBC (Bld) 9.2 % 0-10 [facility] Neutrophil percentageOrdered By: Delores Davising on 11-20-2024 Neutrophils/100 WBC (Bld) 62.5 % 47-70 [facility] Nitrite Test strip Ql (U)Ord ered By: Delores Her on 11-20-2024 Nitrite Ql (U) Negative Negative [facility] Nucleated red blood cell per centageOrdered By: Delores Her on 11-20-2024 Nucleated RBC/100 WBC (Bld) [Ratio] 0 % 0-5 [facility] PSA,Total- [employer] - 0-2024 PSA, DIAGNOSTIC 4.33 ng/mL High 0.00-4.00 [facility] Comment on above: Order Comment: TRAVON HER GETS RESULTS FOR PSA AND COMPREHENSIVE MEDICINE GETS RESULTS FOR ALL OTHER LABS Result Comment: This test was performed using the [employer] tPSA method. Measured values of a patient??sample can vary depending on the testing procedure used. PSA values determined on patient samples by different testing procedures cannot be used interchangeably. If there is a change in PSA assays while monitoring therapy, sequential testing should be performed to confirm baseline values. Performed By: #### L 100.0100, L506.1001, L400.2011, L501.9940, L500.4050, L502.0250, L501.9520, L500.4100 #### [facility] [address], [address] Platelet countOrdered By: Albaro Her on 11-20-2024 Platelets (Bld) [#/Vol] 144 10*3/uL Low 150-450 [facility] Potassium (Unsp spec) [Mass/ Vol]Ordered By: Delores Her on 11-20-2024 Potassium [Moles/Vol] 4.2 mmol/L 3.3-5.1 [facility] Protein Test strip Ql (U)Ord ered By: Delores Her on 11-20-2024 Protein Ql (U) Negative Negative [facility] RBC Auto (Bld) [#/Vol]Ordere d By: Delores Her on 11-20-2024 RBC (Bld) [#/Vol] 5.00 10*6/uL 4.6-6.2 [facility] Screening total cholesterol/ high density lipoprotein (HDL) cholesterol ratioOrdered By: Delores Her on 11-20-2024 Cholesterol.total/Chol esterol in HDL [Mass ratio] 3.56 {ratio} [facility] Serum creatinine measurement (mass/volume)Ordered By: Delores Her on 11-20-2024 Creatinine [Mass/Vol] 0.83 mg/dL 0.70-1.20 [facility] Serum globulin measurementOr dered By: Delores Her on 11-20-2024 Globulin (S) [Mass/Vol] 2.5 g/dL 2.2-4.2 [facility] Serum glucose measurement (m ass/volume)Ordered By: Delores Her on 11-20-2024 Glucose [Mass/Vol] 92 mg/dL 70-[address] [facility] Serum or plasma alanine garcia otransferase (ALT) measurementOrdered By: Delores Her on 11-20-2024 ALT [Catalytic activity/Vol] 13 U/L <47 [facility] Serum or plasma albumin eduardo urement (mass/volume)Ordered By: Delores Her on 11-20-2024 Albumin [Mass/Vol] 4.6 g/dL 3.4-4.[address] [facility] Serum or plasma albumin/glob ulin mass ratioOrdered By: Delores Her on 11-20-2024 Albumin/Globulin [Mass ratio] 1.9 {ratio} 0.9-2.4 [facility] Serum or plasma alkaline lucas sphatase measurementOrdered By: Delores Her on 11-20-2024 ALP [Catalytic activity/Vol] 56 U/L 40-129 [facility] Serum or plasma calcium eduardo urement (mass/volume)Ordered By: Delores Her on 11-20-2024 Calcium [Mass/Vol] 9.7 mg/dL 7.6-11.[address] [facility] Serum or plasma cholesterol in HDL measurement (mass/volume)Ordered By: Delores Her on 11-20-2024 Cholesterol in HDL [Mass/Vol] 57 mg/dL >40 [facility] Comment on above: National Cholesterol Education Program (NCEP) guidelines:<40 mg/dL: Low HDL-cholesterol (major risk factor for CHD)>= 60 mg/dL: High HDL-cholesterol (negative risk factor for CHD)HDL-cholesterol is affected by a number of factors, e.g. smoking, exercise, hormones, sex and age. Serum or plasma cholesterol measurement (mass/volume)Ordered By: Delores Her on 11-20-2024 Cholesterol [Mass/Vol] 202 mg/dL High <201 [facility] Comment on above: Cholesterol level, D esirable <200 mg/dLBorderline high cholesterol 200-239 mg/dLHigh cholesterol >=240 mg/dLRecommendations of the NCEP Adult Treatment Panel for the following risk-cutoff thresholds for the [place] population. Serum or plasma urea nitroge n measurement (mass/volume)Ordered By: Delores Her on 11-20-2024 Urea nitrogen [Mass/Vol] 15 mg/dL 4-19 [facility] Sodium levelOrdered By: Sudheer Her on 11-20-2024 Sodium [Moles/Vol] 141 mmol/L 133-[address] [facility] TSH DL <= 0.005 mIU/L QnOrde red By: Delores Her on 11-20-2024 Thyroid Stimulating Hormone (TSH) 0.946 uIU/mL 0.300-4.200 [facility] Thyroid Stim Hormone (TSH)on 11-20-2024 TSH 0.946 uIU/mL Normal 0.300-4.200 [facility] Comment on above: Order Comment: TRAVON HER GETS RESULTS FOR PSA AND COMPREHENSIVE MEDICINE GETS RESULTS FOR ALL OTHER LABS Performed By: #### L 100.0100, L506.1001, L400.2010, L501.9940, L500.4050, L502.0250, L501.9520, L500.4100 #### [facility] [address] [place], [place], [address] Total proteinOrdered By: Dulce guidry Husser on 11-20-2024 Protein [Mass/Vol] 7.0 g/dL 5.9-8.[address] [facility] Triglycerides measurementOrd ered By: Delores Husser on 11-20-2024 Triglyceride [Mass/Vol] 78 mg/dL <199 [facility] Comment on above: The drugs N-Acetylcy steine and Metamizole may falsely depress this assay. Normal range: <150 mg/dLBorderline High: 150-199 mg/dLHigh: 200-499 mg/dLVery High: >500 mg/dL Urinalysis, Routine (Dipstic k)on 11-20-2024 BILIRUBIN URINE Negative Normal Negative [facility] Comment on above: Order Comment: Urine , Random Performed By: #### L 100.0100, L506.1001, L400.2010, L501.9940, L500.4050, L502.0250, L501.9520, L500.4100 #### [facility] [address] [place], [place], [id number] (811) Clarity (U) Clear Normal Clear [facility] Comment on above: Order Comment: Urine , Random Performed By: #### L 100.0100, L506.1001, L400.2010, L501.9940, L500.4050, L502.0250, L501.9520, L500.4100 #### [facility] [address] [place], [address] Color (U) Yellow Normal Yellow [facility] Comment on above: Order Comment: Urine , Random Performed By: #### L 100.0100, L506.1001, L400.2010, L501.9940, L500.4050, L502.0250, L501.9520, L500.4100 #### [facility] [address] [place], [address] GLUCOSE, UR Normal Normal Normal [facility] Comment on above: Order Comment: Urine , Random Performed By: #### L 100.0100, L506.1001, L400.2010, L501.9940, L500.4050, L502.0250, L501.9520, L500.4100 #### [facility] [address] [place], [address] KETONE UR Negative Normal Negative [facility] Comment on above: Order Comment: Urine , Random Performed By: #### L 100.0100, L506.1001, L400.2010, L501.9940, L500.4050, L502.0250, L501.9520, L500.4100 #### [facility] [address] [place], [address] LEUK ESTERASE Negative Normal Negative [facility] Comment on above: Order Comment: Urine , Random Performed By: #### L 100.0100, L506.1001, L400.2010, L501.9940, L500.4050, L502.0250, L501.9520, L500.4100 #### [facility] [address] [place], [address] Nitrite Ql (U) Negative Normal Negative [facility] Comment on above: Order Comment: Urine , Random Performed By: #### L 100.0100, L506.1001, L400.2010, L501.9940, L500.4050, L502.0250, L501.9520, L500.4100 #### [facility] [address] [place], [address] OCCULT BLOOD-UR Negative Normal Negative [facility] Comment on above: Order Comment: Urine , Random Performed By: #### L 100.0100, L506.1001, L4.2010, L501.9940, L500.4050, L502.0250, L501.9520, L500.4100 #### [facility] [address] [place], [address] pH UR 7.0 Normal 5.0 - 8.0 [facility] Comment on above: Order Comment: Urine , Random Performed By: #### L 100.0100, L506.1001, L400.2010, L501.9940, L500.4050, L502.0250, L501.9520, L500.4100 #### [facility] [address] [place], [address] PROT DIPSTX Negative Normal Negative [facility] Comment on above: Order Comment: Urine , Random Performed By: #### L 100.0100, L506.1001, L400.2010, L501.9940, L500.4050, L502.0250, L501.9520, L500.4100 #### [facility] [address] [place], [address] SP.GR. DIPSTX 1.005 Normal 1.002-1.030 [facility] Comment on above: Order Comment: Urine , Random Performed By: #### L 100.0100, L506.1001, L400.2010, L501.9940, L500.4050, L502.0250, L501.9520, L500.4100 #### [facility] [address] [place], [address] UROBILI Normal Normal Normal [facility] Comment on above: Order Comment: Urine , Random Performed By: #### L 100.0100, L506.1001, L400.2010, L501.9940, L500.4050, L502.0250, L501.9520, L500.4100 #### [facility] [address] [place], [address] Urine blood detectionOrdered By: Delores Husser on 11-20-2024 Urine Occult Blood Negative Negative [facility] Urine clarityOrdered By: Dulce guidry Husser on 11-20-2024 Clarity (U) Clear Clear [facility] Urine color determinationOrd ered By: Delores Husser on 11-20-2024 Color (U) Yellow Yellow [facility] Urine leukocyte esterase det ection by dipstickOrdered By: Delores Husser on 11-20-2024 Leukocyte esterase Test strip Ql (U) Negative Negative [facility] Urine pHOrdered By: Delores Husser on 11-20-2024 pH (U) 7.0 [pH] 5.0 - 8.0 [facility] Urine specific gravity measu rementOrdered By: Delores Husser on 11-20-2024 Specific gravity (U) [Rel density] 1.005 1.002-1.030 [facility] Urobilinogen Ql (U)Ordered B y: Delores Husser on 11-20-2024 Urine Urobilinogen Normal mg/dl Normal [facility] Vitamin D, 25-hydroxyOrdered By: Delores Husser on 11-20-2024 Vitamin D 25-Hydroxy 12.9 ng/mL Low 30-100 [facility] Comment on above: Vitamin D StatusDefi ciency: <20 ng/mL (50nmol/L)Insufficiency: 20-30 ng/mL (50-75 nmol/L)Sufficiency: 30-100 ng/mL (75-250 nmol/L)Toxicity: >100 ng/mL (>250 nmol/L) White blood cell (WBC) count Ordered By: Delores Husser on 11-20-2024 WBC (Bld) [#/Vol] 4.2 10*3/uL Low 4.4-11.[address] [facility] PSA Total+%Freeon 05-20-2024 PSA, FREE 0.77 ng/mL Normal N/A [facility] Comment on above: Result Comment: Татьяна CURTIS methodology. Performed By: #### L 100.0100, L500.2500, L504.2610 #### [facility] [address] [place], [address] PSA, FREE % 15.2 Normal . [facility] Comment on above: Result Comment: The table below lists the probability of prostate cancer for men with non-suspicious CIARA results and total PSA between 4 and 10 ng/mL, by patient age (Cookie et al, ISABELLA 1998, 279:1542). % Free PSA 50-64 yr 65-75 yr 0.00-10.00% 56% 55% 10.01-15.00% 24% 35% 15.01-20.00% 17% 23% 20.01-25.00% 10% 20% >25.00% 5% 9% Please note: Cookie et al did not make specific recommendations regarding the use of percent free PSA for any other population of men. Performed at: [employer] [id number] Universal Gr[employer] Operator: Felice Washington PhD, Phone: [phone] Performed By: #### L 100.0100, L500.2500, L504.2610 #### [facility] [address] [place], [address] PSA, TOTAL ULTR 5.050 ng/mL Abnormal 0.000-4.000 [facility] Comment on above: Result Comment: Татьяна CURTIS methodology. According to the [place] [employer], Serum PSA should decrease and remain at undetectable levels after radical prostatectomy. The AUA defines biochemical recurrence as an initial PSA value 0.200 ng/mL or greater followed by a subsequent confirmatory PSA value 0.200 ng/mL or greater. Values obtained with different assay methods or kits cannot be used interchangeably. Results cannot be interpreted as absolute evidence of the presence or absence of malignant disease. Performed By: #### L 100.0100, L500.2500, L504.2610 #### [facility] [address] [place], [address] Basophil percentageOrdered B y: Sandra Mac on 10-11-2023 Bilirubin [Mass/Vol] 1.10 mg/dL 0.20-1.00 [facility] Comment on above: For patients on eltr ombopag therapy, use of Dimension [place] TBIL is not recommended. Chloride [Moles/Vol] 106 mmol/L 98-107 [facility] Cholesterol [Mass/Vol] 212 mg/dL <200 [facility] Comment on above: <200 mg/dL Desirable 200-240 mg/dL Borderline >240 mg/dL High Risk Glucose [Mass/Vol] 94 mg/dL 74-[address] [facility] Potassium [Moles/Vol] 3.8 mmol/L 3.5-5.1 [facility] Protein [Mass/Vol] 7.3 g/dL 6.4-8.[address] [facility] Sodium [Moles/Vol] 138 mmol/L 136-[address] [facility] Triglyceride [Mass/Vol] 103 mg/dL <199 [facility] Comment on above: The drugs N-Acetylcy steine and Metamizole may falsely depress this assay.Serum Triglycerides Reference Interval Normal <150 mg/dL Borderline high 150 - 199 mg/dL High 200 - 499 mg/dL Very High > or = 500 mg/dL Laboratory - Chemistry and C hemistry - challengeOrdered By: Sandra Mac on 10-11-2023 Albumin/Globulin [Mass ratio] 1.3 {ratio} 0.9-2.4 [facility] ALP [Catalytic activity/Vol] 60 U/L 45-117 [facility] ALT [Catalytic activity/Vol] 20 U/L 16-61 [facility] Cholesterol in HDL [Mass/Vol] 53 mg/dL >40 [facility] Comment on above: The drugs N-Acetylcy steine and Metamizole may falsely depress this assay. Reference Range HDL <40 mg/dL Low HDL Cholesterol HDL >or= 60 mg/dL High HDL Cholesterol Cholesterol in LDL [Mass/Vol] 138 mg/dL 0-130 [facility] CO2 [Moles/Vol] 27.0 mmol/L 21.0-32.0 [facility] Globulin (S) [Mass/Vol] 3.2 g/dL 2.2-4.2 [facility] Urea nitrogen/Creatinine [Mass ratio] 17.3 mg/mg 10-20 [facility] No Panel InformationOrdered By: Sandra Mac on 10-11-2023 Estimated GFR (MDRD) Amer 99 mL/min >60 [facility] Comment on above: GFR Calc Estimated GFR (MDRD) Non-Af Amer 82 mL/min >60 [facility] Comment on above: Non- GFR Calc Free Prostate Specific Antigen 0.89 ng/mL N/A [facility] Comment on above: Beto ECLIA methodol ogy. Percent Free Prostate Specific Ag 15.1 % . [facility] Comment on above: The table below list s the probability of prostate cancer formen with non-suspicious CIARA results and total PSA between4 and 10 ng/mL, by patient age (Cookie et al, ISABELLA 1998,279:1542). % Free PSA 50-64 yr 65-75 yr 0.00-10.00% 56% 55% 10.01-15.00% 24% 35% 15.01-20.00% 17% 23% 20.01-25.00% 10% 20% >25.00% 5% 9%Please note: Cookie et al did not make specific recommendations regarding the use of percent free PSA for any other population of men. Prostate Specific Antigen Comment . [facility] Comment on above: The percent free PSA is performed on a reflex basis onlywhen the total PSA is between 4.0 and 10.0 ng/mL.Performed at: [employer] [id number] Director: Felice Washington PhD, Phone: [phone] Prostate Specific Antigen Total 5.9 ng/mL 0.0-4.0 [facility] Comment on above: Beto ECLIA methodol ogy.According to the [place] [employer], Serum PSAshould decrease and remain at undetectable levels afterradical prostatectomy. The AUA defines biochemicalrecurrence as an initial PSA value 0.2 ng/mL or greaterfollowed by a subsequent confirmatory PSA value 0.2 ng/mLor greater. Values obtained with different assay methods orkits cannot be used interchangeably. Results cannot beinterpreted as absolute evidence of the presence or absenceof malignant disease. VLDL Cholesterol 21 mg/dL 5-40 [facility] Serum or plasma calcium eduardo urement (mass/volume)Ordered By: Sandra Mac on 10-11-2023 Calcium [Mass/Vol] 9.4 mg/dL 8.5-10.[address] [facility] Serum or plasma creatinine m easurement (mass/volume)Ordered By: Sandra Mac on 10-11-2023 Creatinine [Mass/Vol] 0.98 mg/dL 0.70-1.30 [facility] Comment on above: The validity of the calculated GFR & GFRAA in patients over 70 years has not been determined. Clinical correlation is essential. Serum or plasma thyroid stim ulating hormone (TSH) measurement (units/volume)Ordered By: Sandra Mac on 10-11-2023 TSH Qn 1.84 uIU/mL 0.358-3.74 [facility] Serum or plasma urea nitroge n measurement (mass/volume)Ordered By: Sandra Mac on 10-11-2023 Urea nitrogen [Mass/Vol] 17 mg/dL 7-18 [facility] Thin prep Papanicolaou smear with manual screeningOrdered By: Sandra Mac on 10-11-2023 Thin prep Papanicolaou smear with manual screening 4.1 g/dL 3.2-5.0 [facility] Thin prep Papanicolaou smear with manual screening 8 U/L 15-37 [facility] Thin prep Papanicolaou smear with manual screening 5 5-15 [facility] CULTURE ANAEROBIC ([id number])Ord ered By: Solder Making Supervisor on 04-17-2023 Bacteria identified Anaer cx Nom (Unsp spec) Final report Normal [facility]; [facility] Work Phone: Comment on above: PERFORMED BY: [employer] [place] [id number] Bacteria identified Cx Nom (Unsp spec) [id number] Normal [facility]; [facility] Work Phone: Comment on above: No anaerobic growth in 72 hours. PERFORMED BY: [employer] [place] [id number] CULTURE, WOUND (AEROBIC) ([id number])Ordered By: Solder Making Supervisor on 04-17-2023 Bacteria identified Aer cx Nom (Unsp spec) Final report Abnormal [facility]; [facility] Work Phone: Comment on above: PERFORMED BY: [employer] [place] [id number] Information: SRC:WO SRC:WO Bacteria identified Cx Nom (Unsp spec) Aeromonas species Abnormal [facility]; [facility] Work Phone: Comment on above: Heavy growth PERFORMED BY: [email or web address] [facility] [id number] Information: SRC:WO SRC:WO Bacteria identified Cx Nom (Unsp spec) Citrobacter braakii Abnormal [facility]; [facility] Work Phone: Comment on above: Heavy growth PERFORMED BY: [email or web address] [facility] [id number] Information: SRC:WO SRC:WO Other Antibiotic [Susc] MIHEAD Normal [facility]; [facility] Work Phone: Comment on above: S = Susceptible; I = Intermediate; R = Resistant P = Positive; N = Negative MICS are expressed in micrograms per mL Antibiotic RSLT#1 RSLT#2 RSLT#3 RSLT#4Amikacin SAmoxicillin/Clavulanic Acid RAmpicillin/Sulbactam RAztreonam SCefazolin RCefepime SCefepime SCefotaxime SCeftazidime SCeftriaxone SCeftriaxone SCefuroxime RCiprofloxacin SCiprofloxacin SGentamicin SGentamicin SImipenem SLevofloxacin SMeropenem SMeropenem RPiperacillin/Tazobactam RTetracycline STetracycline STobramycin STrimethoprim/Sulfa STrimethoprim/Sulfa S PERFORMED BY: [employer] [id number] Information: SRC:WO SRC:WO Basophil percentageOrdered B y: Sandra Mac on 04-04-2023 Creatinine [Mass/Vol] 1.4 mg/dL 0.70-1.30 [facility] - Chemistry and C hemistry - challengeOrdered By: Sandra Mac on 04-04-2023 GFR/1.73 sq M.predicted among non-blacks MDRD (S/P/Bld) [Vol rate/Area] 55.0000 mL/min/{1.73_m2} >60 [facility] Basophil percentageOrdered B y: Sandra Mac on 03-01-2023 Basophil percentage 167 mg/dL 0-149 [facility] No Panel InformationOrdered By: Sandra Mac on 03-01-2023 Insulin Resistance/Diabetes Risk 47 <=45 [facility] Comment on above: INSULIN RESISTANCE Desmond GODFREY <--Insulin Sensitive Insulin Resistant--> Percentile in Reference PopulationInsulin Resistance ScoreLP-IR Score Low 25th 50th 75th High <27 27 45 63 >63LP-IR Score is inaccurate if patient is non-fasting.The LP-IR score is a laboratory developed index that hasbeen associated with insulin resistance and diabetes riskand should be used as one component of a physician'sclinical assessment.Performed at: [employer] [id number] Director: Keegan Bueno MD, Phone: [phone] LDL Cholesterol Particle Number [id number] nmol/L <1000 [facility] Comment on above: Low < 1000 Moderate 1000 - 1299 Borderline-High 1300 - 1599 High 1600 - 2000 Very High > 2000 LDL Cholesterol Particle Size 21.1 nm >20.5 [facility] Comment on above: INTERPRETATIVE INFORMATION PARTICLE CONCENTRATION AND SIZE <--Lower CVD Risk Higher CVD Risk--> LDL AND HDL PARTICLES Percentile in Reference Population HDL-P (total) High 75th 50th 25th Low >34.9 34.9 30.5 26.7 <26.7 Small LDL-P Low 25th 50th 75th High <117 117 527 839 >839 LDL Size <-Large (Pattern A)-> <-Small (Pattern B)-> 23.0 20.6 20.5 19.0 Small LDL-P and LDL Size are associated with CVD risk, butnot after LDL-P is taken into account. LDL Cholesterol, Calculated 103 mg/dL 0-99 [facility] Comment on above: Optimal < 100 Above optimal 100 - 129 Borderline 130 - 159 High 160 - 189 Very high > 189 Miscellaneous Test See comment [facility] Comment on above: TEST RESULTS LIMITSA po A1+B+RatioApolipoprotein A-1 135 mg/dL 101-178Apolipoprotein B 86 mg/dL <90 Desirable < 90 Borderline High 90 - 99 High 100 - 130 Very High >130 ASCVD RISK THERAPEUTIC TARGET CATEGORY APO B (mg/dL) Very High Risk <80 (if extreme risk <70) High Risk <90 Moderate Risk <90Apolipo. B/A-1 Ratio 0.6 ratio 0.0-0.7 Apolipoprotein B/A-1 Ratio Male Female Avg.Risk 0.7 0.6 2X Avg.Risk 0.9 0.9 3X Avg.Risk 1.0 1.0 TESTING PERFORMED AT [facility]. ORIGINAL REPORT ON FILE IN LAB CONTAINS ADDITIONAL TEST SITE INFORMATION. Small LDL Particle Number 358 nmol/L <=527 [facility] Serum or plasma cholesterol in HDL measurement (mass/volume)Ordered By: Sandra Mac on 03-01-2023 Cholesterol in HDL [Mass/Vol] 54 mg/dL >39 [facility] Serum or plasma cholesterol measurement (mass/volume)Ordered By: Sandra Mac on 03-01-2023 Cholesterol [Mass/Vol] 186 mg/dL 100-199 [facility] Thin prep Papanicolaou smear with manual screeningOrdered By: Sandra Mac on 03-01-2023 Thin prep Papanicolaou smear with manual screening 30.2 umol/L >=30.5 [facility] Basophil percentageOrdered B y: Sandra Mac on 02-26-2023 Basophil percentage 0 SEEN /hpf 0-5 [facility] Cholesterol [Mass/Vol] 192 mg/dL <200 [facility] Comment on above: <200 mg/dL Desirable 200-240 mg/dL Borderline >240 mg/dL High Risk Triglyceride [Mass/Vol] 214 mg/dL <199 [facility] Comment on above: The drugs N-Acetylcy steine and Metamizole may falsely depress this assay.Serum Triglycerides Reference Interval Normal <150 mg/dL Borderline high 150 - 199 mg/dL High 200 - 499 mg/dL Very High > or = 500 mg/dL Bilirubin Test strip Ql (U)O rdered By: Sandra Mac on 02-26-2023 Bilirubin Ql (U) Negative Negative [facility] Cerebrospinal fluid Borrelia burgdorferi 18kd IgG antibody detection by immunoblotOrdered By: Sandra Mac on 02-26-2023 B. burgdorferi 18kD IgG IB Ql (CSF) Absent . [facility] Cerebrospinal fluid Borrelia burgdorferi 23kD IgG antibody detection by immunoblotOrdered By: Sandra Mac on 02-26-2023 B. burgdorferi 23kD IgG IB Ql (CSF) Absent . [facility] Cerebrospinal fluid Borrelia burgdorferi 23kD IgM antibody detection by immunoblotOrdered By: Sandra Mac on 02-26-2023 B. burgdorferi 23kD IgM IB Ql (CSF) Present . [facility] Cerebrospinal fluid Borrelia burgdorferi 28kD IgG antibody detection by immunoblotOrdered By: Sandra Mac on 02-26-2023 B. burgdorferi 28kD IgG IB Ql (CSF) Absent . [facility] Cerebrospinal fluid Borrelia burgdorferi 39kD IgG antibody detection by immunoblotOrdered By: Sandra Mac on 02-26-2023 B. burgdorferi 39kD IgG IB Ql (CSF) Absent . [facility] Cerebrospinal fluid Borrelia burgdorferi 39kD IgM antibody detection by immunoblotOrdered By: Sandra Mac on 02-26-2023 B. burgdorferi 39kD IgM IB Ql (CSF) Present . [facility] Cerebrospinal fluid Borrelia burgdorferi 41kD IgM antibody detection by immunoblotOrdered By: Sandra Mac on 02-26-2023 B. burgdorferi 41kD IgM IB Ql (CSF) Present . [facility] Ketones Test strip Ql (U)Ord ered By: Sandra Tae on 02-26-2023 Ketones Ql (U) Negative Negative [facility] Mucus LM Ql (Urine sed)Order ed By: Sandra Tae on 02-26-2023 Mucus Ql (Urine sed) 0 SEEN /hpf [facility] Nitrite Test strip Ql (U)Ord ered By: Sandra Mac on 02-26-2023 Nitrite Ql (U) Negative Negative [facility] No Panel InformationOrdered By: Sandra Mac on 02-26-2023 Lyme Disease IgG Ab 30 kDa Band Absent . [facility] Lyme Disease IgG Ab 93 kDa Band Present . [facility] Lyme Disease IgG West Blot Interp Negative . [facility] Comment on above: Positive: 5 of the f ollowing Borrelia-specific bands: 18,23,28,30,39,41,45,58, 66, and 93. Negative: No bands or banding patterns which do not meet positive criteria. Lyme Disease IgM Ab (Western Blot) Positive . [facility] Comment on above: Note: An equivocal o r positive EIA result followed by anegative Line Blot result is considered NEGATIVE. Anequivocal or positive EIA result followed by a positiveLine Blot is considered POSITIVE by the CDC.Positive: 2 of the following bands: 23,39 or 41Negative: No bands or banding patterns which do not meetpositive criteria.Criteria for positivity are those recommended byCDC/ASTPHLD. p23=Osp C, o90=bvinonvdfNwtu:Sera from individuals with the following may cross reactin the Lyme Line Blot assays: other spirochetal diseases(periodontal disease, leptospirosis, relapsing fever, yaws,and pinta); connective autoimmune (Rheumatoid Arthritis andSystemic Lupus Erythematosus and also individuals withAntinuclear Antibody); other infections (Wilfredo MountainSpotted Fever; Susan-Green Virus, and Cytomegalovirus).Please Note: Lyme immunoblot alone is not recommended forthe diagnosis of Lyme disease. Current guidelines recommendthe use of a two-tiered approach to Lyme serology testingto improve the sensitivity and specificity of testing.[facility] offers test code 377455 Lyme Disease Serology withReflex to aid in the diagnosis of Lyme Disease.Performed at: - [address] [id number] Director: Keegan Bueno MD, Phone: [phone] Thyroid Stimulating Hormone (TSH) 0.79 uIU/mL 0.358-3.74 [facility] Protein Test strip Ql (U)Ord ered By: Sandra Mac on 02-26-2023 Protein Ql (U) 15 mg/dl Negative [facility] Serum Borrelia burgdorferi 4 1kD IgG antibody detection by immunoblotOrdered By: Sandra Mac on 02-26-2023 B. burgdorferi 41kD IgG IB Ql (S) Present . [facility] Serum Borrelia burgdorferi 6 6kD IgG antibody detection by immunoblotOrdered By: Sandra Mac on 02-26-2023 B. burgdorferi 66kD IgG IB Ql (S) Absent . [facility] Serum or plasma cholesterol in HDL measurement (mass/volume)Ordered By: Sandra Mac on 02-26-2023 Cholesterol in HDL [Mass/Vol] 53 mg/dL >40 [facility] Comment on above: The drugs N-Acetylcy steine and Metamizole may falsely depress this assay. Reference Range HDL <40 mg/dL Low HDL Cholesterol HDL >or= 60 mg/dL High HDL Cholesterol Serum or plasma cholesterol in VLDL measurement (mass/volume)Ordered By: Sandra Mac on 02-26-2023 Cholesterol in VLDL [Mass/Vol] 43 mg/dL 5-40 [facility] Serum or plasma low density lipoprotein (LDL) cholesterol measurement (mass/volume)Ordered By: Sandra Mac on 02-26-2023 Cholesterol in LDL [Mass/Vol] 96 mg/dL 0-130 [facility] Squamous epithelial cells de tection in urine sediment by light microscopyOrdered By: Sandra Mac on 02-26-2023 Epithelial cells.squamous LM Ql (Urine sed) 0 SEEN /hpf 0-5 [facility] Synovial fluid Borrelia orville dorferi 45kD IgG antibody detection by immunoblotOrdered By: Sandra Mac on 02-26-2023 B. burgdorferi 45kD IgG IB Ql (Syn fld) Absent . [facility] Synovial fluid Borrelia orville dorferi 58kD IgG antibody detection by immunoblotOrdered By: Sandra Mac on 02-26-2023 B. burgdorferi 58kD IgG IB Ql (Syn fld) Present . [facility] Urine blood detectionOrdered By: Sandra Mac on 02-26-2023 RBC Ql (U) Negative Negative [facility] RBC Ql (U) 0 SEEN /hpf 0-5 [facility] Urine clarityOrdered By: Franklin Mac on 02-26-2023 Clarity (U) Clear Clear [facility] Urine color determinationOrd ered By: Sandra Mac on 02-26-2023 Color (U) Yellow Yellow [facility] Urine glucose detectionOrder ed By: Sandra Mac on 02-26-2023 Glucose Ql (U) Normal mg/dl Normal [facility] Urine leukocyte esterase det ection by dipstickOrdered By: Sandra Mac on 02-26-2023 Leukocyte esterase Test strip Ql (U) Negative Negative [facility] Urine pHOrdered By: Sandra Mac on 02-26-2023 pH (U) 6.5 [pH] 5.0 - 8.0 [facility] Urine sediment bacteria coun t by microscopy (number/high power field)Ordered By: Sandra Mac on 02-26-2023 Bacteria LM.HPF (Urine sed) [#/Area] 0 /[HPF] None Seen [facility] Urine specific gravity measu rementOrdered By: Sandra Mac on 02-26-2023 Specific gravity (U) [Rel density] 1.015 1.002-1.030 [facility] Urobilinogen Auto test strip Ql (U)Ordered By: Sandra Mac on 02-26-2023 Urobilinogen Ql (U) Normal mg/dl Normal [facility] Whole blood hemoglobin A1c/t otal hemoglobin ratio (mass fraction)Ordered By: Sandra Mac on 02-26-2023 HbA1c (Bld) [Mass fraction] 5.4 % 3.8-5.6 [facility] Comment on above: Normal < 5.7 % Predi abetic 5.7 - 6.4 % Diabetic >or= 6.5 % Please note range changes. Absolute lymphocyte countOrd ered By: Sandra Mac on 02-20-2023 Lymphocytes Auto (Unsp spec) [#/Vol] 0.51 10*3/uL 0.83-4.51 [facility] Basophil percentageOrdered B y: Sandra Mac on 02-20-2023 Basophils/100 WBC (Bld) 0.2 % 0-1 [facility] Bilirubin [Mass/Vol] 0.40 mg/dL 0.20-1.00 [facility] Comment on above: For patients on eltr ombopag therapy, use of Dimension [place] TBIL is not recommended. Chloride [Moles/Vol] 109 mmol/L 98-107 [facility] Eosinophils/100 WBC (Bld) 0.0 % 0-5 [facility] Glucose [Mass/Vol] 122 mg/dL 74-[address] [facility] Comment on above: Fasting Glucose resu lt from 100 to 125 mg/dL suggests IMPAIRED HOMEOSTASIS per A.D.A. criteria. Neutrophils (Bld) [#/Vol] 7.4 10*3/uL 2.0-7.7 [facility] Neutrophils/100 WBC (Bld) 91.7 % 47-70 [facility] Potassium [Moles/Vol] 3.8 mmol/L 3.5-5.1 [facility] Protein [Mass/Vol] 7.1 g/dL 6.4-8.[address] [facility] Sodium [Moles/Vol] 142 mmol/L 136-[address] [facility] WBC (Bld) [#/Vol] 8.0 10*3/uL 4.4-11.[address] [facility] Creatinine [Mass/Vol] 1.0 mg/dL 0.70-1.30 [facility] Blood erythrocytes count (nu mber/volume)Ordered By: Sandra Mac on 02-20-2023 RBC (Bld) [#/Vol] 4.90 10*6/uL 4.6-6.2 [facility] Blood hemoglobin measurement (mass/volume)Ordered By: Sandra Mac on 02-20-2023 Hemoglobin (Bld) [Mass/Vol] 14.2 g/dL 13.0-16.5 [facility] Blood lymphocytes/100 leukoc ytesOrdered By: Sandra Mac on 02-20-2023 Lymphocytes/100 WBC (Bld) 6.3 % 19-41 [facility] Blood manual differential co mment interpretation (narrative result)Ordered By: Sandra Mac on 02-20-2023 Manual differential comment Doroteo (Bld) [Interp] SCANNED [facility] Blood monocytes/100 leukocyt esOrdered By: Sandra Mac on 02-20-2023 Monocytes/100 WBC (Bld) 1.2 % 0-10 [facility] Blood platelet mean volumeOr dered By: Sandra Mac on 02-20-2023 Platelet mean volume (Bld) [Entitic vol] 12.8 fL 6.2-12.0 [facility] Determination of erythrocyte mean corpuscular volume (MCV)Ordered By: Sandra Mac on 02-20-2023 MCV (RBC) [Entitic vol] 86.7 fL 80-94 [facility] Erythrocyte sedimentation ra teOrdered By: Sandra Mac on 02-20-2023 ESR (Bld) [Velocity] 7 mm/h 0-20 [facility] Hematocrit Auto (Bld) [Volum e fraction]Ordered By: Sandra Mac on 02-20-2023 Hematocrit (Bld) [Volume fraction] 42.5 % 40-54 [facility] - Chemistry and C hemistry - challengeOrdered By: Sandra Mac on 02-20-2023 ALP [Catalytic activity/Vol] 69 U/L 45-117 [facility] ALT [Catalytic activity/Vol] 16 U/L 16-61 [facility] CO2 [Moles/Vol] 26.0 mmol/L 21.0-32.0 [facility] Globulin (S) [Mass/Vol] 3.3 g/dL 2.2-4.2 [facility] Urea nitrogen/Creatinine [Mass ratio] 15.5 mg/mg 10-20 [facility] Laboratory - Hematology and Cell countsOrdered By: Sandra Mac on 02-20-2023 Erythrocyte distribution width (RBC) [Entitic vol] 41.1 fL 35.1-43.9 [facility] Erythrocyte distribution width (RBC) [Ratio] 13.2 % 11.6-14.6 [facility] Immature granulocytes/100 WBC (Bld) 0.600 % 0.0-0.9 [facility] Comment on above: IG% - Immature Granu locytes (promyelocytes, myelocytes and metamyelocytes) > 1% indicates that a LEFT SHIFT is Present. MCH (RBC) [Entitic mass] 29.0 pg 27.0-32.0 [facility] Nucleated RBC/100 WBC (Bld) [Ratio] 0 % 0-5 [facility] Lyme Disease Antibody W/ Ref santhosh (21218)Ordered By: Solder Making Supervisor on 02-20-2023 Lyme Disease Antibody W/ Reflex (21469) Positive Normal [facility] Work Phone: Comment on above: Evidence of Lyme ant ibodies; confirmation indicated. See LymeIgG and Lyme IgM results (reflex testing), and Lyme interpretationfor final interpretation of the Lyme serology reflex algorithm. PATIENT NOT FASTINGP ERFORMED BY: ANDRES [facility] [id number] [facility] [id number] MCHC Auto (RBC) [Mass/Vol]Or dered By: Sandra Mac on 02-20-2023 MCHC (RBC) [Mass/Vol] 33.4 g/dL 32-36 [facility] No Panel InformationOrdered By: Sandra Mac on 02-20-2023 Estimated GFR (MDRD) Amer 119 mL/min >60 [facility] Comment on above: GFR Calc Estimated GFR (MDRD) Non-Af Amer 98 mL/min >60 [facility] Comment on above: Non- GFR Calc Bedside Estimated GFR (eGFR) > 60.0000 mL/min >60 [facility] Platelets bldOrdered By: Franklin Mac on 02-20-2023 Platelets (Bld) [#/Vol] 189 10*3/uL 150-450 [facility] Serum or plasma C reactive p rotein measurement (mass/volume)Ordered By: Sandra Mac on 02-20-2023 CRP [Mass/Vol] 3.88 mg/L 0.0-3.0 [facility] Comment on above: C-Reactive Protein ( CRP) provides useful information for thediagnosis, therapy and monitoring of inflammatory processesand associated diseases. For the evaluation of Relative Riskfor Cardiovascular Disease, a High Sensitivity CRP (HSCRP)should be ordered. Serum or plasma albumin eduardo urement (mass/volume)Ordered By: Sandra Mac on 02-20-2023 Albumin [Mass/Vol] 3.8 g/dL 3.2-5.[address] [facility] Serum or plasma albumin/glob ulin mass ratioOrdered By: Sandra Mac on 02-20-2023 Albumin/Globulin [Mass ratio] 1.2 {ratio} 0.9-2.4 [facility] Serum or plasma calcium eduardo urement (mass/volume)Ordered By: Sandra Mac on 02-20-2023 Calcium [Mass/Vol] 9.0 mg/dL 8.5-10.[address] [facility] Serum or plasma creatinine m easurement (mass/volume)Ordered By: Sandra Mac on 02-20-2023 Creatinine [Mass/Vol] 0.84 mg/dL 0.70-1.30 [facility] Comment on above: The validity of the calculated GFR & GFRAA in patients over 70 years has not been determined. Clinical correlation is essential. Serum or plasma urea nitroge n measurement (mass/volume)Ordered By: Sandra Mac on 02-20-2023 Urea nitrogen [Mass/Vol] 13 mg/dL 7-18 [facility] Thin prep Papanicolaou smear with manual screeningOrdered By: Sandra Mac on 02-20-2023 Thin prep Papanicolaou smear with manual screening 9 U/L 15-37 [facility] Thin prep Papanicolaou smear with manual screening 7 5-15 [facility] Vital Signs Date Time Vital Sign Value Performing Clinician Facility 10-04-2023 10:18-0500 Body temperature 97.9 [degF] NURSING INFORMATICS SPECIALIST-C Sandra Mac Work Phone: [facility] 10-04-2023 10:18-0500 Diastolic blood pressure 72 mm[Hg] NURSING INFORMATICS SPECIALIST-C Sandra Mac Work Phone: [facility] 10-04-2023 10:18-0500 Heart rate 54 /min NURSING INFORMATICS SPECIALIST-C Sandra Mac Work Phone: [facility] 10-04-2023 10:18-0500 Respiratory rate 16 /min NURSING INFORMATICS SPECIALIST-Dipak Mac Work Phone: [facility] 10-04-2023 10:18-0500 SaO2% (BldA) [Mass fraction] 95 % NURSING INFORMATICS SPECIALIST-C Sandra Mac Work Phone: [facility] 10-04-2023 10:18-0500 Systolic blood pressure 100 mm[Hg] NURSING INFORMATICS SPECIALIST-C Sandra Mac Work Phone: [facility] 10-04-2023 08:45-0500 Body height 170.18 cm NURSING INFORMATICS SPECIALIST-C Sandra Mac Work Phone: [facility] 10-04-2023 08:45-0500 Body mass index (BMI) [Ratio] 28.5 kg/m2 NURSING INFORMATICS SPECIALIST-C Sandra Mac Work Phone: [facility] 10-04-2023 08:45-0500 Body weight 82.7 kg NURSING INFORMATICS SPECIALIST-C Sandra Mac Work Phone: [facility] 09-20-2023 12:29-0500 Body mass index (BMI) [Ratio] 29 kg/m2 NURSING INFORMATICS SPECIALIST-C Sandra Mac Work Phone: [facility] 09-20-2023 12:29-0500 Body weight 83.91 kg NURSING INFORMATICS SPECIALIST-C Sandra Mac Work Phone: [facility] 05-02-2023 13:14-0400 Body height 172.72 cm Alaina Lee LPN [facility]; [facility] Work Phone: 05-02-2023 13:14-0400 Body mass index (BMI) [Ratio] 27.98 kg/m2 Alaina Slarb PORTER LUGGAGE [facility]; [facility] Work Phone: 05-02-2023 13:14-0400 Body surface area Derived from formula 1.97 m2 Alaina Slarb JUVENTINO [facility]; [facility] Work Phone: 05-02-2023 13:14-0400 Body temperature 98.3 [degF] Alaina Layorb PORTER LUGGAGE [facility]; [facility] Work Phone: Comment on above: Method: Temporal 05-02-2023 13:14-0400 Body weight 83.46 kg Alaina Slarb PORTER LUGGAGE [facility]; [facility] Work Phone: 05-02-2023 13:14-0400 Diastolic blood pressure 82 mm[Hg] Alaina Slarb PORTER LUGGAGE [facility]; [facility] Work Phone: Comment on above: Patient Position: Sitting; Cuff Location : Left Arm; Cuff Size: Standard 05-02-2023 13:14-0400 Heart rate 72 /min Alaina Slarb PORTER LUGGAGE [facility]; [facility] Work Phone: Comment on above: Pattern: Regular 05-02-2023 13:14-0400 Respiratory rate 15 /min Alaina Slarb PORTER LUGGAGE [facility]; [facility] Work Phone: Comment on above: Pattern: Unlabored 05-02-2023 13:14-0400 SaO2% (BldA) [Mass fraction] 97 % Alaina Slarb PORTER LUGGAGE [facility]; [facility] Work Phone: Comment on above: Room air 05-02-2023 13:14-0400 Systolic blood pressure 132 mm[Hg] Alaina Slarb PORTER LUGGAGE [facility]; [facility] Work Phone: Comment on above: Patient Position: Sitting; Cuff Location : Left Arm; Cuff Size: Standard 04-17-2023 15:05-0400 Body height 172.72 cm Alaina Slarb PORTER LUGGAGE [facility]; [facility] Work Phone: 04-17-2023 15:05-0400 Body mass index (BMI) [Ratio] 27.98 kg/m2 Alaina Slarb PORTER LUGGAGE [facility]; [facility] Work Phone: 04-17-2023 15:05-0400 Body surface area Derived from formula 1.97 m2 Alaina Slarb PORTER LUGGAGE [facility]; [facility] Work Phone: 04-17-2023 15:05-0400 Body temperature 97.1 [degF] Alaina Slarb PORTER LUGGAGE [facility]; [facility] Work Phone: Comment on above: Method: Temporal 04-17-2023 15:05-0400 Body weight 83.46 kg Alaina Slarb PORTER LUGGAGE [facility]; [facility] Work Phone: 04-17-2023 15:05-0400 Diastolic blood pressure 82 mm[Hg] Alaina Slarb PORTER LUGGAGE [facility]; [facility] Work Phone: Comment on above: Patient Position: Sitting; Cuff Location : Left Arm; Cuff Size: Standard 04-17-2023 15:05-0400 Heart rate 87 /min Alaina Slarb PORTER LUGGAGE [facility]; [facility] Work Phone: Comment on above: Pattern: Regular 04-17-2023 15:05-0400 Respiratory rate 16 /min Alaina Slarb PORTER LUGGAGE [facility]; [facility] Work Phone: Comment on above: Pattern: Unlabored 04-17-2023 15:05-0400 SaO2% (BldA) [Mass fraction] 98 % Alaina Slarb PORTER LUGGAGE [facility]; [facility] Work Phone: Comment on above: Room air 04-17-2023 15:05-0400 Systolic blood pressure 132 mm[Hg] Alaina Slarb PORTER LUGGAGE [facility]; [facility] Work Phone: Comment on above: Patient Position: Sitting; Cuff Location : Left Arm; Cuff Size: Standard 04-03-2023 07:02-0400 Diastolic blood pressure 84 mm[Hg] Dr. Zoila Scherer Work Phone: [facility] 04-03-2023 07:02-0400 Systolic blood pressure 144 mm[Hg] Dr. Zoila Scherer Work Phone: [facility] 04-03-2023 07:01-0400 Body height 172.[address] Zoila Scherer Work Phone: [facility] 04-03-2023 07:01-0400 Body mass index (BMI) [Ratio] 26.6 kg/m2 Dr. Zoila Scherer Work Phone: [facility] 04-03-2023 07:01-0400 Body temperature 98.6 [degF] Dr. Zoila Scherer Work Phone: [facility] 04-03-2023 07:01-0400 Body weight 79.[address] Zoila Scherer Work Phone: [facility] 04-03-2023 07:01-0400 Heart rate 96 /min Dr. Zoila Scherer Work Phone: [facility] 04-03-2023 07:01-0400 Respiratory rate 16 /min Dr. Zoila Scherer Work Phone: [facility] 04-03-2023 07:01-0400 SaO2% (BldA) [Mass fraction] 96 % Dr. Zoila Scherer Work Phone: [facility] 02-20-2023 13:16-0400 Body height 172.72 cm Alaina Lee LPN [facility]; [facility] Work Phone: 02-20-2023 13:16-0400 Body mass index (BMI) [Ratio] 27.98 kg/m2 Alaina Lee LPN [facility]; [facility] Work Phone: 02-20-2023 13:16-0400 Body surface area Derived from formula 1.97 m2 Alaina Lee LPN [facility]; [facility] Work Phone: 02-20-2023 13:16-0400 Body temperature 97.5 [degF] Alaina Lee LPN [facility]; [facility] Work Phone: Comment on above: Method: Temporal 02-20-2023 13:16-0400 Body weight 83.46 kg Alaina Lee LPN [facility]; [facility] Work Phone: 02-20-2023 13:16-0400 Diastolic blood pressure 82 mm[Hg] Alaina Lee LPN [facility]; [facility] Work Phone: Comment on above: Patient Position: Sitting; Cuff Location : Left Arm; Cuff Size: Standard 02-20-2023 13:16-0400 Heart rate 74 /min Alaina Slarb PORTER LUGGAGE [facility]; [facility] Work Phone: Comment on above: Pattern: Regular 02-20-2023 13:16-0400 Respiratory rate 16 /min Alaina Slarb PORTER LUGGAGE [facility]; [facility] Work Phone: Comment on above: Pattern: Unlabored 02-20-2023 13:16-0400 SaO2% (BldA) [Mass fraction] 97 % Alaina Slarb PORTER LUGGAGE [facility]; [facility] Work Phone: Comment on above: Room air 02-20-2023 13:16-0400 Systolic blood pressure 136 mm[Hg] Alaina Slarb PORTER LUGGAGE [facility]; [facility] Work Phone: Comment on above: Patient Position: Sitting; Cuff Location : Left Arm; Cuff Size: Standard 02-19-2023 08:19-0400 Diastolic blood pressure 99 mm[Hg] [facility] 02-19-2023 08:19-0400 Systolic blood pressure 177 mm[Hg] [facility] 02-19-2023 08:05-0400 Body height 170 cm [facility] 02-19-2023 08:05-0400 Body mass index (BMI) [Ratio] 29.5 kg/m2 [facility] 02-19-2023 08:05-0400 Body weight 85.27 kg [facility] 02-19-2023 07:56-0400 Body temperature 97 [degF] [facility] 02-19-2023 07:56-0400 Heart rate 73 /min [facility] 02-19-2023 07:56-0400 Respiratory rate 14 /min [facility] 02-19-2023 07:56-0400 SaO2% (BldA) [Mass fraction] 98 % [facility] Encounters Encounter Date Encounter Type Care Provider Facility Start: 02-17-2025 ambulatory Sandra Mac Facility :[facility] Start: 12-25-2024 End: 12-25-2024 ambulatory Sandra Tae Facility:[facility] Start: 11-20-2024 End: 11-20-2024 ambulatory Sandra Mac NURSING INFORMATICS SPECIALIST-C Work Phone: [facility] Work Phone: Start: 11-20-2024 End: 11-20-2024 Patient encounter procedure [facility] [place] Work Phone: Start: 11-20-2024 End: 11-20-2024 ambulatory Sandra Tae Facility:[facility] Start: 05-19-2024 End: 05-19-2024 ambulatory Sandra Tae Facility:[facility] Start: 10-11-2023 End: 10-11-2023 ambulatory NURSING INFORMATICS SPECIALIST-C Sandra Mac Work Phone: [facility] Work Phone: Start: 10-11-2023 End: 10-11-2023 Patient encounter procedure NURSING INFORMATICS SPECIALIST-C Sandra Mac Work Phone: [facility] Work Phone: Start: 10-04-2023 Non-patient / Non-visit NURSING INFORMATICS SPECIALIST-C Sandra Mac Work Phone: [facility] Start: 10-04-2023 End: 10-04-2023 Admission to same day surgery center NURSING INFORMATICS SPECIALIST-C Sandra Mac Work Phone: [facility] Work Phone: Start: 10-04-2023 End: 10-04-2023 ambulatory NURSING INFORMATICS SPECIALIST-C Sandra Mac Work Phone: [facility] Work Phone: Start: 09-20-2023 Non-patient / Non-visit NURSING INFORMATICS SPECIALIST-C Sandra Mac Work Phone: [facility] Work Phone: Start: 05-02-2023 End: 05-02-2023 Office outpatient visit 10 minutes Sandra Mac PRESS SERVICE READER Work Phone: [facility] Start: 04-17-2023 End: 04-22-2023 Office outpatient visit 15 minutes Sandra Mac CNP Work Phone: [facility] Start: 04-17-2023 Review Sandra Mac CNP Work Phone: [facility] Start: 04-04-2023 End: 04-04-[address] Zoila Scherer Work Phone: [facility] Work Phone: Start: 04-04-2023 End: 04-04-[address] Zoila Scherer Work Phone: [facility] Work Phone: Start: 04-03-2023 End: 04-03-[address] Zoila Scherer Work Phone: [facility] Work Phone: Start: 03-07-2023 End: 03-07-2023 Annotation/Addendum Zoila Scherer DO Work Phone: [facility] Start: 03-01-2023 End: 03-01-2023 ambulatory [facility] Work Phone: Start: 03-01-2023 End: 03-01-2023 Patient encounter procedure [facility] Work Phone: Start: 02-28-2023 End: 02-28-2023 Lab Order Zoila Scherer DO Work Phone: [facility] Start: 02-27-2023 Review Zoila sexton DO Work Phone: [facility] Start: 02-26-2023 End: 02-26-2023 ambulatory [facility] Work Phone: Start: 02-26-2023 End: 02-26-2023 Patient encounter procedure [facility] Work Phone: Start: 02-21-2023 End: 02-21-2023 Patient encounter procedure Zoila Scherer DO Work Phone: [facility] Start: 02-21-2023 End: 02-21-2023 Patient encounter procedure Zoila Scherer DO Work Phone: [facility] Start: 02-20-2023 End: 02-20-2023 ambulatory [facility] Work Phone: Start: 02-20-2023 End: 02-20-2023 Patient encounter procedure [facility]Cat Scan, [facility] Start: 02-20-2023 End: 02-20-2023 Office outpatient new 30 minutes Zoila Scherer DO Work Phone: [facility] Start: 02-20-2023 Review Zoila Harley n DO Work Phone: [facility] Start: 02-19-2023 End: 02-19-2023 Emergency department patient visit [facility]-Emergency Department Procedures Date Procedure Procedure Detail Performing Clinician Start: 10-04-2023 Colonoscopy NURSING INFORMATICS SPECIALIST-Dipak Mac Work Phone: Start: 04-18-2023 End: 04-18-2023 Surgery Visit Report Procedure Note: See Note; NOTES: [facility] [address] [place] [address]. [address] [place], [place] [id number] OFFICE VISIT Date of Service: 04/18/23 MR#: [id number] Acct: [id number] Name: BEBEOT ROMERO Rep #: [id number] : 1960 Provider: Dr. Nilo paredes MD Age/Sex: 62/M Location: [facility] Status: Signed Intake Vital Signs 04/03/23 [...] applied. Patient tolerated the procedure well. Alert Software Integration Developer Alert Billing: Yes Incision and Drainage 59848 Complex/Multiple Procedure Time Out Time Out Informed [...] Follow-up as needed. Nilo Ash MD Pager: [facility] [address] [place] [address], [address] [place] [address] Office: Orders: Orders Incision and Drainage Today L02.414 - Cutaneous abscess of left upper limb Coding Level of Care Code Attention Software Integration Developer Diagnoses Abscess of left forearm L02.414 CPT Codes Incision and Drainage - I D: 15429 Complex/Multiple (99720) 04/18/23 1429 <Electronically signed by Nilo Ash MD> Date Nilo Ash MD Cosigner Signature: Date (if applicable) CC: NURSING INFORMATICS SPECIALIST-C Sandra Mac [facility] Work Phone: Start: 04-04-2023 MRI of brain with contrast Dr. Zoila Scherer Work Phone: Start: 04-04-2023 End: 04-05-2023 Brain W/WO Contrast Procedure Note: See Note; NOTES: [facility] [address] [place] [address] Brain W/WO Contrast MR#: [id number] Acct: [id number] Name: BEBETO ROMERO Rep #: [id number] : 1960 M 62 From: Maulik Danielle PCP: Dr. Zoila Scherer, DO Status: REG CLI Study: Brain W/WO Contrast Date of Exam: 04/04/23 Exam# [id number] Ordering Dr: Sandra Mac NURSING INFORMATICS SPECIALIST- C EXAM: MR HEAD WITHOUT AND [...] MD at 7:19 EDT , CC: Sandra Mac NP; Dr. Zoila Scherer DO Knitting Machine Fixer: Signed Sandra Mac CNP Work Phone: Start: 04-03-2023 End: 04-03-2023 Urgent Care Visit Report Procedure Note: See Note; NOTES: [facility] [address], [address] [place] [address] OFFICE VISIT Date of Service: 04/03/23 MR#: [id number] Acct: [id number] Name: BEBETO ROMERO Rep #: [id number] : 1960 Provider: JENNIFER Murcia Age/Sex: 62/M Location: [facility] Status: Signed Intake Vital Signs 02/19/23 08:05 [...] CONCERN Chief Complaint: LT ARM REDNESS/SWELLING/ WOUND Pantry Cook Required: No Accompanied by: Self Allergies No Known Allergies Allergy (Verified 04/03/23 06:53) Medications amoxicillin 875 mg-potassium clavulanate 125 mg tablet 1 tab PO BID #20 tabs 04/03/23 [Rx Confirmed 04/03/23] PFSH Medical History (Updated 04/03/23 @ 07:25 by JENNIFER Champion) Cellulitis of left forearm Puncture wound of [...] lightheadedness/dizziness, nausea, or chest pressure/shortness of breath.. Aydi-pdb-loxkjxe ibuprofen and Tylenol has assist with current symptoms. No other associated symptoms and no alleviating/aggravating factors. ROS Const Constitutional: No other (As above) Exam Const General: cooperative, healthy appearing and no acute distress Nutritional Appearance: average body habitus Orientation: alert, awake and oriented x3 HENMT Head: normal to inspection Ears: hearing grossly [...] the above. This note was generated with [employer] software. It may contain incorrect words, spelling, and punctuation that were not noted in checking the note before signing. Medications: New amoxicillin-pot clavulanate 875-125 mg 1 TAB PO BID 20 tabs 0RF 04/03/23 0726 <Electronically signed by Oren RODRIGUEZ> Date Oren RODRIGUEZ Cosigner Signature: Date (if applicable) CC: Sandra Mac [facility] Work Phone: Start: 02-20-2023 End: 02-20-2023 Brain/Head W/WO Contrast Procedure Note: See Note; NOTES: [facility] [address] [address] Brain/Head W/WO Contrast MR#: [id number] Acct: [id number] Name: BEBETO ROMERO Rep #: [id number] : 1960 M 62 From: Derrick Zambrano DO PCP: Dr. Zoila Scherer DO Status: REG CLI Study: Brain/Head W/WO Contrast Date of Exam: 3 Exam# [id number] Ordering Dr: Sandra Mac NURSING INFORMATICS SPECIALIST- C INDICATION: Wong''s palsy EXAMINATION: CT [...] 16:20 EDT Reading Location ID and State: [address] [place] [address] Tel [phone], Service support , CC: Sandra Mac NURSING INFORMATICS SPECIALIST; Dr. Zoila Scherer DO Knitting Machine Fixer: Signed Sandra Mac CNP Work Phone: Start: 02-20-2023 CT of head without contrast Start: 02-19-2023 End: 02-19-2023 Emergency Department Summary Procedure Note: See Note; NOTES: [facility] Department [address] [place] [address] Emergency Department Summary 02/19/23 MR#: [id number] Acct: [id number] Name: BEBETO ROMERO Rep #: [id number] : 1960 62 From: Armando Fernandes MD [...] Provider: Alyssia High Referrals: Zoila Scherer DO [Med Staff - Business Division Chair] - Activity Restrictions/Additional Instructions: Wear eye patch [...] your Primary Care Provider. Call [facility] ([phone]) or report to the closest Emergency Room. Call 911 if necessary. 02/19/23 0825 <Electronically signed by Armando Fernandes MD> Cosigner Signature (if applicable): CC: Dr. Alyssia High MD; Dr. Zoila Scherer DO Signed Zoila Scherer DO Work Phone: Plan of Treatment Date Care Activity Detail Author Start: 10-04-2023 Colsc flx w/rmvl of tumor polyp lesion snare tq COLONOSCOPY W/LESION REMOVAL [facility] Start: 10-04-2023 Patient discharge [facility] Start: 05-02-2023 Procedure Education Eprescribed prescriptions (G8553) [facility] Work Phone: Start: 04-17-2023 Culture bacterial any source anaerobic iso&id CULTURE ANAEROBIC (18368) [facility]; [facility] Work Phone: Start: 04-17-2023 CULTURE, WOUND (AEROBIC) (18706) CULTURE, WOUND (AEROBIC) (42366) [facility]; [facility] Work Phone: Start: 04-17-2023 Procedure Education Eprescribed prescriptions (G8553) [facility]; [facility] Work Phone: Start: 04-17-2023 Provider Instructions for Treatment Follow up in 2 weeks [facility]; [facility] Work Phone: Start: 03-07-2023 Lipid panel LIPID PANEL (52537) : Do around 06/2023 [facility]; [facility] Work Phone: Start: 03-01-2023 Procedure [facility] Start: 03-01-2023 [facility] Start: 02-28-2023 Apolipoprotein each APOLIPOPROTEIN (07059) [facility] Work Phone: Start: 02-28-2023 Lipoprotein blood jaclyn numbers & subclasses NMR Profile (85439) [facility]; [facility] Work Phone: Start: 02-21-2023 Assay of thyroid stimulating hormone tsh TSH (THYROID STIMULATING HORMONE) (41964) [facility]; [facility] Work Phone: Start: 02-21-2023 Hemoglobin glycosylated a1c HGB A1C (13645) [facility]; [facility] Work Phone: Start: 02-21-2023 Lipid panel LIPID PANEL (95407) [facility]; [facility] Work Phone: Start: 02-21-2023 Protein westrn blot i&r blood/other fluid PROTEIN-WESTERN BLOT (07786) [facility]; [facility] Work Phone: Start: 02-21-2023 Provider Instructions for Treatment Follow up in one week with Sandra [facility]; [facility] Work Phone: Start: 02-21-2023 Urinls dip stick/tablet reagnt non-auto micrscpy URINALYSIS W MICROSCOPY (95306) [facility] Work Phone: Start: 02-20-2023 Blood count complete auto&auto difrntl wbc CBC, PLATELETS & AUT DIFF ([id number]) [facility] Work Phone: Start: 02-20-2023 C-reactive protein C-REACTIVE PROTEIN ([id number]) [facility] Work Phone: Start: 02-20-2023 Comprehensive metabolic panel METABOLIC PANEL, COMPREHENSIVE (88324) [facility] Work Phone: Start: 02-20-2023 Procedure Education Eprescribed prescriptions ([id number]) [facility] Work Phone: Start: 02-20-2023 Provider Instructions for Treatment Follow up [facility] Work Phone: Start: 02-20-2023 Sedimentation rate rbc automated Sedimentation Rate-ESR (52043) [facility] Work Phone: Start: 02-20-2023 Antibody borrelia burgdorferi lyme disease Lyme Disease Antibody W/ Reflex ([id number]) [facility] Work Phone: Beta lipoprotein subparticle measurement [facility] Cholesterol [Mass/volume] in Serum or Plasma [facility] Cholesterol in HDL [Mass/volume] in Serum or Plasma [facility] Colonoscopy [facility] Lipoprotein.alpha [Moles/volume] in Serum or Plasma [facility] Lipoprotein.beta.sub part icle.small [Moles/volume] in Serum or Plasma [facility] Patient Education Hypertension D c ED Wong's Palsy [facility] Work Phone: Patient referral [facility] Work Phone: Triglyceride [Mass/volume] in Serum or Plasma [facility] Work Phone: [facility] Work Phone: [facility] Work Phone: Payers Date Payer Category Payer Private Health Insurance [id number] 2024 Self-pay [id number] 2024 Unknown [id number] Unknown ANTHEM [id number] Unknown [place] BC/BS Unknown [id number] Unknown [id number] Unknown [id number] Unknown [id number] Social History Date Type Detail Facility Start: 02-19-2023 End: 10-02-2023 Tobacco smoking status NHIS Unknown if ever smoked [facility] Start: 1960 Sex Assigned At Male [facility] Start: 10-02-2023 Tobacco smoking stat us NHIS Never smoked tobacco (finding) [facility] Start: 11-27-2024 Sex Male (finding) [facility] Goals Date Patient Goal Desired Activity /State Mental Status Date Assessment Result Facility 10-04-2023 Cognitive function Voice/Name [facility] Work Phone: 02-19-2023 Cognitive function Level Of Cons ciousness Awake;Alert;Appropriate;Follow s Commands [facility] Work Phone: Clinical Notes 05-02-2023 to 10-04-2023 Note Date & Type Note Facility 10-04-2023 Procedure note [facility] 10-04-2023 Procedure note [facility] 05-02-2023 Instructions Name Follow up in 4-6 months Indication:BMI 27.0-27.9,adult Start: 3 Instruction Type:Provider Instructions for Treatment Patient Instructions Indication:BMI 27.0-27.9,adult Start: 3 Instruction Type:Provider Instructions for Treatment How to Access Health Information Online using Patient Portal and [employer] Apps Indication:BMI 27.0-27.9,adult Start: 3 Instruction Type:Patient Education Patient Instructions Indication:Cellulitis Start: 3 Instruction Type:Provider Instructions for Treatment How to Access Health Information Online using Patient Portal and FlipKey Indication:Cellulitis Start: 3 Instruction Type:Patient Education Patient Instructions Indication:Wong's palsy Start: 3 Instruction Type:Provider Instructions for Treatment How to Access Health Information Online using Patient Portal and FlipKey Indication:Wong's palsy Start: 3 Instruction Type:Patient Education [facility] Work Phone: discharge summary Author Dr. Fernandes [facility] February 19, 2023 8:25am Note Date/Time February 19, 2023 8:13 am [facility] Medical Records Department [address] [place] [address] Emergency Department Summary 02/19/23 MR#: [id number] Acct: [id number] Name: BEBETO ROMERO Rep #:[id number] : 1960 62 From: Armando Fernandes MD PCP: Dr. Alyssia High MD Status:PRE E R Location: ED HPI History of Present Illness [...] but is trying to get 1. He takesno medications since he has no medical problems [...] several days. He needs to get regular rechecksand states she is establishing him with Dr. Scherer. At this time prednisone is indicated, will start him on 60 mg today and do 60 mg total for 6 days followed by a 4-day taper per current recommendations. He has no contraindications of prednisone right now. We discussed eyepatch and artificialtears to prevent any problems or damage to [...] Provider: Alyssia High Referrals: Zoila Scherer DO [Med Staff - Business Division Chair] - Activity Restrictions/Additional Instructions: Wear eye patch whenever outdoors to protect eye and use artificial tears as needed throughout the day to prevent dry eye, which can cause increased irritation, pain, and corneal abrasions. Disposition Disposition: Home, Self Care What to do if you have Problems For any increased pain, shortness of breath, bleeding, nausea or vomiting, chestpain, or any unexpected problems, contact your Primary Care Provider. Call [facility] ([phone]) or report to the closest Emergency Room. Call 911 if necessary. 02/19/23824 <Electronically signed by Armando Fernandes MD> Cosigner Signature (if applicable): CC: Dr. Alyssia High MD; Dr. Zoila Scherer DO ~ Signed [facility] Work Phone: Evaluation noteNo assessment information available [facility] Work Phone: Evaluation note* Diagnosis Onset Date Resolution Status Cellulitis of left forearm a cute Puncture wound of left forearm acute [facility] Work Phone: Evaluation note* Diagnosis Onset Date Resolution Status Encounter for screening for malignant neoplasm of colo n acute [facility] Work Phone: History and physical note Author Felix Friend [facility] October 04, 2023 9:10am Note Date/Time October 04, 2023 9 :10am [facility] Medical Records Department [address] [place] [address] [place] [address] History & Physical Exam 10/04/2308 MR#: [id number] Acct: [id number] Name: BEBETO ROMERO Rep #:[id number] : 1960 63 From: Felix Friend PCP: Sandra Mac NURSING INFORMATICS SPECIALIST-C Status:REG S DC Location: [place] [address] HPI - General General Date of Admission: 10/04/23 Date of Service: 10/04/23 Chief Complaint: Screening colonoscopy HPI Narrative BEBETO ROMERO, is a 63 M who presents today for screening colonoscopy. He hasnever had a colonoscopy. He is not having any abdominal pain. Is not myographic. He denied any chest pain or shortness of breath. He denies any nausea, vomiting or diarrhea. He has no change in bowel bladder habits. Overall is in very good health. [facility] Medical History (Updated 10/02/23 @ 13:21 by Lizabeth Zimmerman) Cellulitis of left forearm Hx of Wong's palsy Inguinal hernia bilateral, non-recurrent Non-smoker Puncture wound of left forearm Wears glasses Home Medications NK 10/02/23 [History Last Taken Unknown] Allergy/AdvReac Type Severity Reaction Status Date / Time No Known Allergies Allergy Verified 10/04/23 08:40 Family History (Updated 09/20/23 @ 12:24 by Haley Butler) Father Liver cancer Surgical History H/O craniotomy Hx of bilateral inguinal hernia repair Social History (Updated 09/20/23 @ 12:25 by Haley Butler) current occupational status: employed Smoking Status: Never smoker Smokeless tobacco user: chewing tobacco ROS Review of Systems ROS Unobtainable: other Constitutional Constitutional: Denies fatigue, fever(s), poor appetite, weight gain or weight loss ENT HEENT: Denies mouth lesions Cardiovascular Cardiovascular: Denies abdominal bloating, abdominal edema or abdominal pain Respiratory/Chest Respiratory/Chest: Denies change in mental status, change in phlegm color, chestcongestion or chest tightness Gastrointestinal Gastrointestinal: Denies belching, bloating, change in bowel habits, change in stool character, chewing difficulty, coffee ground emesis, constipation, cramping, diarrhea, dyspepsia, dysphagia, early satiety, excessive flatus, fecalincontinence, heartburn, hematemesis, hematochezia, hemorrhoids, loose stools, melena, nausea, odynophagia, rectal bleeding, tenesmus, vomiting or weight changes Genitourinary Genitourinary: Denies abdominal discomfort, burning urination or itching Musculoskeletal Musculoskeletal: Reports as per HPI; Denies muscle weakness or myalgias Integumentary Integumentary: Denies jaundice Neurologic Neurologic: Denies lack of coordination or weakness Psychiatric Psychiatric: Denies confusion, depression, memory loss, mood swings, paranoia orsuicidal ideation Endocrine Endocrinology: Denies systems reviewed and no addt'l complaints, except as documented Hematologic/Lymphatic Hematologic/Lymphatic: Denies anemia, easy bleeding, easy bruising or lymphadenopathy Allergic/Immunologic Allergic/Immunologic: Denies systems reviewed and no addt'l complaints, except as documented Vital Signs Vital Signs Vital Signs: 10/04/23 08:45 10/04/23 08:45 Temperature 97.9 F Temperature Source Temporal Pulse Rate 71 Respiratory Rate 17 Respiratory Pattern Normal Blood Pressure 158/99 H Blood Pressure Mean 118 Blood Pressure Source Monitor Blood Pressure Position Semi-Fowlers Blood Pressure Location Right Arm Pulse Ox 99 Oxygen Delivery Method Room Air Weight Weight: 182 lb 5.156 oz Body Mass Index (BMI) 28.5 Physical Exam Const alert General Appearance: cooperative Orientation / Consciousness: oriented to person HEENT hearing grossly normal bilaterally Head and Scalp: normal to inspection Face and Sinus: face symmetric Nose: external nose normal Mouth: oral and palatal mucosa normal Eyes conjunctivae normal General Eye: normal appearance of both eyes Neck full ROM General: normal visual inspection Lymph Lymphatic: no lymphadenopathy noted Chest inspection of chest normal and palpation of chest normal Chest: symmetrical chest wall rise Resp normal respiratory effort Effort and Inspection: able to speak in complete sentences Cardio regular rate GI non-distended Percussion: normal to percussion Rectal Exam: deferred Neuro Speech: speech normal Gait (Neuro): normal gait Assessment & Plan Assessment/Plan (1) Encounter for screening for malignant neoplasm of colon: PLAN: Use explained alternatives, risk, benefits including outstanding bleeding,infection, sepsis, perforation, need for emergent surgery and . He will have an ASA of 2. 10/04/23 0910 <Electronically signed by Felix Lamb DO> Cosigner Signature (if applicable): CC: YEYO Mac; Felix Lamb DO~ Signed [facility] Work Phone: Hospital Discharge instructions Additional Instructions Wear eye patch whenever outdoors to protect eye and use artificial tears as needed throughout the day to prevent dry eye, which can cause increased irritation, pain, and corneal abrasions.[facility] Work Phone: Instructions* Name Dates Details Patient Instructions Indication:Wong's palsy Start:20-Feb-2023 Instruction Type:Provider Instructions for Treatment How to Access Health Informa tion Online using Patient Portal and Foldax Apps Indication:Wong's palsy Start:20-Feb-2023 Instruction Type:Patient Education [facility]; [facility] Work Phone: instructions* Name Dates Details Patient Instructions Indication:Wong's palsy Start:20-Feb-2023 Instruction Type:Provider Instructions for Treatment How to Access Health Informa tion Online using Patient Portal and [employer] Apps Indication:Wong's palsy Start:20-Feb-2023 Instruction Type:Patient Education [facility]; [facility] Work Phone: instructions* Name Dates Details Patient Instructions Indication:Wong's palsy Start:20-Feb-2023 Instruction Type:Provider Instructions for Treatment How to Access Health Informa tion Online using Patient Portal and Foldax Apps Indication:Wong's palsy Start:20-Feb-2023 Instruction Type:Patient Education [facility]; [facility] Work Phone: instructions* Name Dates Details Patient Instructions Indication:Wong's palsy Start:20-Feb-2023 Instruction Type:Provider Instructions for Treatment How to Access Health Informa tion Online using Patient Portal and [employer]ax Apps Indication:Wong's palsy Start:20-Feb-2023 Instruction Type:Patient Education [facility]; [facility] Work Phone: instructions* Name Dates Details Patient Instructions Indication:Wong's palsy Start:20-Feb-2023 Instruction Type:Provider Instructions for Treatment How to Access Health Informa tion Online using Patient Portal and [employer] Apps Indication:Wong's palsy Start:20-Feb-2023 Instruction Type:Patient Education [facility]; [facility] Work Phone: instructions* Name Dates Details Patient Instructions Indication:Wong's palsy Start:20-Feb-2023 Instruction Type:Provider Instructions for Treatment How to Access Health Informa tion Online using Patient Portal and Foldax Apps Indication:Wong's palsy Start:20-Feb-2023 Instruction Type:Patient Education [facility]; [facility] Work Phone: instructions* Name Dates Details Patient Instructions Indication:Cellulitis Start:17-Apr-2023 Instruction Type:Provider Instructions for Treatment How to Access Health Informa tion Online using Patient Portal and [employer]ax Apps Indication:Cellulitis Start:17-Apr-2023 Instruction Type:Patient Education Patient Instructions Indication:Wong's palsy Start:20-Feb-2023 Instruction Type:Provider Instructions for Treatment How to Access Health Informa tion Online using Patient Portal and [employer]ax Apps Indication:Wong's palsy Start:20-Feb-2023 Instruction Type:Patient Education [facility]; [facility] Work Phone: instructions* Name Dates Details Patient Instructions Indication:Cellulitis Start:17-Apr-2023 Instruction Type:Provider Instructions for Treatment How to Access Health Informa tion Online using Patient Portal and [employer] Apps Indication:Cellulitis Start:17-Apr-2023 Instruction Type:Patient Education Patient Instructions Indication:Wong's palsy Start:20-Feb-2023 Instruction Type:Provider Instructions for Treatment How to Access Health Informa tion Online using Patient Portal and [employer]ax Apps Indication:Wong's palsy Start:20-Feb-2023 Instruction Type:Patient Education [facility]; [facility] Work Phone: instructions* Name Dates Details Patient Instructions Indication:Cellulitis Start:17-Apr-2023 Instruction Type:Provider Instructions for Treatment How to Access Health Informa tion Online using Patient Portal and Foldax Apps Indication:Cellulitis Start:17-Apr-2023 Instruction Type:Patient Education Patient Instructions Indication:Wong's palsy Start:20-Feb-2023 Instruction Type:Provider Instructions for Treatment How to Access Health Informa tion Online using Patient Portal and [employer]ax Apps Indication:Wong's palsy Start:20-Feb-2023 Instruction Type:Patient Education [facility] Work Phone: reason for referral (narrative)No reason for [facility] information [facility] Work Phone: Chief Complaint and Reason for Visit Chief Complaint NEURO SX Chief Complaint NEURO SX BELLS PALSY Chief Complaint NEURO SX BELLS PALSY LEFT ARM REDNESS/SWELLING/WOUND INFECTION CONCERN WONG'S PALSY Reason for Visit Cellulitis of left f orearm Puncture wound of left forearm Chief Complaint Amb Documentation Reason for Visit Encounter for screen ing for malignant neoplasm of colon Chief Complaint Admit Date 2 ORDERING GIOVANNI HER & KRISTI MAC November 20, 2024 10:12am Advance Directives No Advanced Directives Records Found Advance Directive Response Recorded Date/ Time Living Will No February 19, 2023 8:04am Power of Online Merchant No February 19 8:04am Advance Directive Response Recorded Date/ Time Living Will No October 02 1:18pm Power of Online Merchant No October 02, 2023 1:18pm Summary Purpose Family History No Family History Records Found Additional Source Comments Care Teams (unrecognized sec tion and content) Team Status: Active Member Role Status Dates YEYO Haider Primary Care Provider Active Team Status: Inactive Member Role Status Dates YEYO Haider Primary Care Provider Active Start: November 20, 2024 End: November 20, 2024 YEYO Haider Referring Provider Active Start: November 20, 2024 End: November 20, 2024 Delores Her Attending Provider Active Start : November 20, 2024 End: November 20, 2024 Team Status: Active Member Role Status Dates Dr. Zoila Scherer DO Primary Care Provider Active Team Status: Inactive Member Role Status Dates Dr. Armando Fernandes MD Emergency Provider Active Dr. Zoila Scherer DO Primary Care Provider Active Team Status: Inactive Member Role Status Dates Dr. Armando Fernandes MD Attending Provider, Emergency Provider Active Dr. Zoila Scherer DO Primary Care Provider Active Team Status: Inactive Member Role Status Dates Dr. Zoila Scherer DO Primary Care Provider Active YEYO Haider Attending Provider, Referring Pr ovider Active Team Status: Active Member Role Status Dates Dr. Zoila Scherer DO Primary Care Provider Active YEYO Haider Attending Provider, Referring Pr ovider Active Team Status: Inactive Member Role Status Dates Dr. Zoila Scherer DO Primary Care Provider, Referr ing Provider Active Oren RODRIGUEZ, PA Attending Provider Active Team Status: Active Member Role Status Dates Sandra Mac NP-C Primary Care Provider Active Haley Butler Attending Provider Active Team Status: Active Member Role Status Dates Sandra Mac NP-C Primary Care Provider, Referring Provider Active Dr. Felix Lamb , Attending Provider, Other Prov ider Active Team Status: Inactive Member Role Status Dates Sandra Mac NP-C Primary Care Provider, Referring Provider Active Dr. Felix Lamb , DO Attending Provider Active Team Status: Inactive Member Role Status Dates Sandra Mac , NURSING INFORMATICS SPECIALIST-C Primary Care Provi bibi, Attending Provider, Referring Provider Active Goals (unrecognized section and content) Goals may be documented in a n alternate sectionGoals may be documented in an alternate sectionGoals may be documented in an alternate sectionGoals may be documented in an alternate sectionGoals may be documented in an alternate sectionGoals may be documented in an alternate section (unrecognized sect ion and content) No Status Records Found INFORMATION SOURCE (unrecogn ized section and content) DATE CREATED AUTHOR 02/06/2025 [facility] FOR RECORDS PERTAINING TO PATIENTS WHO ARE [...] BE BASED ON THE PRIMARY CLINICAL RECORDS. [employer] provides no warranty or guarantee of the accuracy or completeness of information in this document.
== END | disposition home or self-care (01) ==
PROVIDERS: PCP Nurse Practitioner Family; Referring Provider Nurse Practitioner Family; Visit Provider Nurse Practitioner Family
DX: I10 Essential (primary) hypertension (principal)
CPT/HCPCS: 93975